=== PATIENT | male | born 1960 | race Caucasian/White ===

== ENCOUNTER 2016-07-04 15:25 | Emergency (ER) | payer OTHER ==
--- NOTE | 2016-07-04 16:20 | ED ---
Lower Extremity Injury HPI - General Chief Complaint: Extremity Injury, Lower Stated Complaint: poss post op infection-[facility] Time Seen by Provider: 07/04/16 15:57 Source: patient, RN notes reviewed Mode of arrival: wheelchair Limitations: no limitations - History of Present Illness Initial Comments: 55-year-old male presents emergency Department chief complaint of right leg infection. This started today he noticed redness and drainage from the area. Patient had surgery about a month ago down at [facility]. Patient states he has also small fever. Patient states he is concerned about infection so he thought that he should be seen. Patient states that he has not taken any antibiotics. Patient has admitted to a low-grade fever. Patient has noticed some redness to the leg. Patient's is in the room patient. Patient denies any recent shortness of breath, chest pain, back pain, abdominal pain, nausea vomiting, numbness or tingling, dysuria or hematuria, constipation or diarrhea, headaches or visual changes, or any other current symptoms. - Related Data Previous Rx's Medication Instructions Recorded Naproxen [Naprosyn] 500 mg PO BID #14 tab 03/12/14 Allergies Allergy/AdvReac Type Severity Reaction Status Date / Time No Known Allergies Allergy Verified 04/09/14 14:32 Review of Systems ROS Statement: Those systems with pertinent positive or pertinent negative responses have been documented in the HPI. ROS Other: All systems not noted in ROS Statement are negative. Past Medical History Past Medical History: Asthma Additional Past Medical History / Comment(s): bronchitis, History of Any Multi-Drug Resistant Organisms: None Reported Past Surgical History: Orthopedic Surgery, Tonsillectomy Additional Past Surgical History / Comment(s): rt. leg incision Past Anesthesia/Blood Transfusion Reactions: No Reported Reaction Past Psychological History: No Psychological Hx Reported Smoking Status: Never smoker Past Alcohol Use History: Rare Past Drug Use History: None Reported General Exam - General Exam Comments Initial Comments: General: The patient is awake and alert, in no distress, and does not appear acutely ill. Neck: The neck is supple, there is no tenderness. Cardiovascular: There is a regular rate and rhythm. No murmur, rub or gallop is appreciated. Respiratory: Lungs are clear to auscultation, respirations are non-labored, breath sounds are equal. No wheezes, stridor, rales, or rhonchi. Musculoskeletal: Sensation intact with 2+ pulses to the right lower extremity. Patient's friend rash on the right knee and right ankle. Patient has Redness induration and drainage from the right surgical incision site. Patient does notice some drainage. Neurological: CN II-XII intact, There are no obvious motor or sensory deficits. Coordination appears grossly intact. Speech is normal. Skin: Skin is warm and dry and no rashes or lesions are noted. Psychiatric: Normal mood and affect. Limitations: no limitations Course Vital Signs 07/04/16 15:34 Temperature 99.9 F H Pulse Rate 103 H Respiratory 20 Rate Blood Pressure 120/66 O2 Sat by Pulse 92 L Oximetry Medical Decision Making - Medical Decision Making 55-year-old male presents for what appears to be a surgical incision infection. This time he was offered IV lab work antibiotics medications and to be most likely transfer to that facility originally did his procedure. He states that he would just like to go to that facility the only reason he came here because Workmen's Comp. told to just go to the ER he like the facility that helped him. At this time we discussed that we would do all these and he states he does not have these done here he will go directly there. states that he would drive him. At this time we do understand the patient's wishes. At this time we will let him go by car he does appear to be safe to wait for tried him there is no immediate issue causing the patient will not be able to go by car. This and the patient will leave and he will seek treatment elsewhere. [facility] informing them about the patient coming. Disposition Clinical Impression: Cellulitis of right leg Disposition: OTHER INSTITUTION NOT DEFINED Condition: Stable Instructions: Cellulitis (ED) Additional Instructions: Go directly to [facility] where you had your procedure. Time of Disposition: 16:12 - Out of Hospital Transfer - Req. Specs Out of Hospital Transfer - Requested Specifics: Other Emergency Center ([facility])
[2016-07-04 16:41] VITALS: BP 130/66; PULSE 94; RESP 16; TEMP 100.1
== END 2016-07-04 16:41 | disposition other institution (70) ==
LOC: EC 15:25
DX: L03.115 Cellulitis of right lower limb (principal); L76.82 Other postprocedural complications of skin and subcutaneous tissue; Y83.8 Other surgical procedures as the cause of abnormal reaction of the patient, or of later complication, without mention of misadventure at the time of the procedure
CPT/HCPCS: 99283

== ENCOUNTER → 2017-04-18 | Outpatient (CLI) | payer MEDICAID ==
--- NOTE | 2017-04-18 16:38 | US ---
EXAMINATION TYPE: US venous doppler duplex LE RT DATE OF EXAM: 04/18/2017 4:05 PM COMPARISON: NONE CLINICAL HISTORY: RT leg L03.115 Cellulitis rt lower limp. SIDE PERFORMED: Right TECHNIQUE: The lower extremity deep venous system is examined utilizing real time linear array sonog pita with graded compression, doppler sonography and color-flow sonography. VESSELS IMAGED: External Iliac Vein (EIV) Common Femoral Vein Deep Femoral Vein Greater Saphenous Vein * Femoral Vein Popliteal Vein Small Saphenous Vein * Proximal Calf Veins (* superficial vessels) Right Leg: Negative for DVT Preliminary phoned to Amanda at Dr. Kelly's office. Grayscale, color doppler, spectral doppler imaging performed of the deep veins of the lower extremiti es. There is normal flow, compressibility, vascular waveforms. IMPRESSION: No sonographic evidence of deep venous thrombosis within the right lower extremity.
== END | disposition home or self-care (01) ==
LOC: RADUSWWP 15:38
PROVIDERS: ATTEND Family Medicine
DX: L03.115 Cellulitis of right lower limb (principal); R60.0 Localized edema

== ENCOUNTER → 2018-08-21 | Outpatient (CLI) | payer MEDICAID ==
[2018-08-21 10:39] LABS: Basophils % (A) 1 %; Eosinophils # (A) 0.5 k/uL (0-0.7); Eosinophils % (A) 6 %; HCT 41.9 % (39.0-53.0); HGB 13.2 gm/dL (13.0-17.5); Lymphocytes # (A) 1.6 k/uL (1.0-4.8); Lymphocytes % (A) 22 %; MCH 28.2 pg (25.0-35.0); MCHC 31.5 g/dL (31.0-37.0); MCV 89.5 fL (80.0-100.0); Mean Platelet Volume 7.4; Monocytes # (A) 0.4 k/uL (0-1.0); Monocytes % (A) 6 %; Neutrophils # (A) 4.6 k/uL (1.3-7.7); Neutrophils % (A) 64 %; Platelet Count 254 k/uL (150-450); RBC 4.69 m/uL (4.30-5.90); RDW 13.4 % (11.5-15.5); WBC 7.2 k/uL (3.8-10.6)
[2018-08-21 16:27] LABS: Albumin/Globulin Ratio 1.48 (1.60-3.17); Anion Gap 5.8 mmol/L (4.00-12.00); Calcium 9.2 mg/dL (8.7-10.3); Carbon Dioxide 26.2 mmol/L (21.6-31.8); Globulin 2.7 g/dL (1.6-3.3); Potassium 4.5 mmol/L (3.5-5.5); Total Bilirubin 0.2 mg/dL (0.3-1.2); Total Protein 6.7 g/dL (6.2-8.2)
== END | disposition home or self-care (01) ==
LOC: LABWHC1 09:32
PROVIDERS: ATTEND Nurse Practitioner Family
DX: K62.5 Hemorrhage of anus and rectum (principal); R10.9 Unspecified abdominal pain
CPT/HCPCS: 36415; 80053; 83036; 85025

== ENCOUNTER 2018-10-09 08:52 | Day surgery (SDC) | payer MEDICAID, OTHER ==
[2018-10-05 15:29] VITALS: BMI 36.5
[~2018-10-09 08:52] MED LIST: LACTATED RINGERS 1,000 ML IV SCH
[2018-10-09 09:40] VITALS: TEMP 97.7
[2018-10-09] MEDS ORDERED: PROPOFOL 10 MG/ML 20 ML VIAL IV ONE (11:32)
--- NOTE | 2018-10-09 11:42 | P.GSHP ---
History of Present Illness H&P Date: 10/09/18 Chief Complaint: Rectal bleeding Patient today for colonoscopy. He has not had one previously. Recently has had some heavy rectal bleeding. No constipation or diarrhea. No family history of colon cancer. Past Medical History Past Medical History: Asthma Additional Past Medical History / Comment(s): HX BRONCHITIS., HAYFEVER, HX OF HERNIATED DISC.,HX OF CELLULITIS IN RIGHT LEG X2., BLOOD IN STOOL., STATES LEFT LEG LACERATION ON HARTMAN WITH 16 STITCHES NOW REMOVED - STATES HE HAS CELLULITIS- DRAINING AND HAS DRESSING ON & TAKING ANTIBIOTIC.,INSTRUCTED PT TO NOTIFY DR LOPEZ OFFICE . History of Any Multi-Drug Resistant Organisms: None Reported Past Surgical History: Orthopedic Surgery, Tonsillectomy Additional Past Surgical History / Comment(s): SURGERY ON RIGHT LEG FX., DEVELOPED CELLULITIS AND HAD I & D. Past Anesthesia/Blood Transfusion Reactions: No Reported Reaction Past Psychological History: No Psychological Hx Reported Smoking Status: Never smoker Past Alcohol Use History: Rare Past Drug Use History: None Reported - Past Family History Father Additional Family Medical History / Comment(s): PARKINSONS Medications and Allergies Home Medications Medication Instructions Recorded Confirmed Type Clindamycin HCl [Cleocin] 300 mg PO Q8H 10/05/18 10/09/18 History Multivitamin/Iron/Folic Acid 1 each PO DAILY 10/05/18 10/05/18 History [Centrum Complete Multivit Tab] Naproxen Sodium [Aleve] 440 mg PO DAILY 10/05/18 10/05/18 History Allergies Allergy/AdvReac Type Severity Reaction Status Date / Time ANTIBIOTIC Allergy Nausea & Uncoded 10/09/18 09:56 Vomiting TAPE AdvReac Itching Uncoded 10/09/18 09:53 Surgical - Exam Vital Signs Temp Pulse Resp BP Pulse Ox 97.7 F 76 20 133/60 93 L 10/09/18 09:38 10/09/18 09:38 10/09/18 09:38 10/09/18 09:38 10/09/18 09:38 Physical exam: General: Well-developed, well-nourished HEENT: Normocephalic, sclerae nonicteric Abdomen: Nontender, nondistended Extremities: No edema Neuro: Alert and oriented Assessment and Plan (1) Rectal bleeding Narrative/Plan: Will proceed with colonoscopy Current Visit: Yes Status: Acute Code(s): K62.5 - HEMORRHAGE OF ANUS AND RECTUM SNOMED Code(s): 87452740
--- NOTE | 2018-10-09 12:06 | P.PCN ---
Date of Procedure: 10/09/18 Procedure(s) Performed: PREOPERATIVE DIAGNOSIS: Rectal bleeding POSTOPERATIVE DIAGNOSIS: Small hemorrhoids, suboptimal prep PROCEDURE: Colonoscopy ANESTHESIA: MAC SURGEON: Arnulfo Ceron M.D. SPECIMENS: None ENDOSCOPIC PROCEDURE: The patient was placed on the endoscopy table in the left decubitus position. The Olympus colonoscope was inserted into the anus and passed under direct visualization to the base of the cecum. The appendiceal orifice was visualized. From that point the scope was slowly withdrawn inspecting all surfaces carefully. There were no neoplastic inflammatory or polypoid lesions throughout the cecum, ascending, transverse, descending, sigmoid and rectum. There was no visible diverticulosis noted. Digital rectal examination revealed small internal and external hemorrhoids without evidence of recent or active bleeding. No fissure was palpable although there was some scar ring posteriorly that may have represented a previous fissure. The patient's prep was slightly suboptimal although most of the liquid stool could be evacuated. May have been small polyps that were not visualized properly is a patient's prep. The patient was taken to the recovery room in stable condition per anesthesia guidelines. RECOMMENDATIONS: Increase fiber. Plan follow loss be 10 years. If bleeding persists or increases follow-up in the office.
[2018-10-09 12:13] VITALS: BP 96/61; PULSE 63; RESP 16
--- NOTE | 2018-10-17 07:10 | CDI ---
Outpatient Documentation Clarification Form Date: 10/17/2018 CDS/Preschool Teacher Aide Name: Nirav Forman Phone: If any questions, call Dorita Sanchez Electric Meter Tester at [phone] Patient Name: Rai Cleaning Admit Date: 10/09/2018 Discharge Date: 10/09/2018 ATTENTION: The [facility] Coding Staff appreciate your assistance in clarifying documentation. Please respond to the clarification below the line at the bottom and electronically sign. The [facility] Coding staff will review the response and follow-up if needed. Please note: Queries are made part of the Legal Health Record. If you have any questions, please contact the Electric Meter Tester. Dear Jie Richardson Patient was present with rectal bleeding and colonoscopy was planned, internal and external hemorrhoids were found during procedure without active and recent bleed. Kindly clarify the etiology rectal bleeding and cause and effect relation between rectal bleeding and Hemorrhoids. Thank you for your kind consideration. MTDD
== END 2018-10-09 12:40 | disposition home or self-care (01) ==
LOC: ORWHC2ENDO 08:52
PROVIDERS: ATTEND Surgery
DX: K62.5 Hemorrhage of anus and rectum (principal); K64.4 Residual hemorrhoidal skin tags; K64.8 Other hemorrhoids; E66.9 Obesity, unspecified; J45.909 Unspecified asthma, uncomplicated; Z79.1 Long term (current) use of non-steroidal anti-inflammatories (NSAID); Z88.1 Allergy status to other antibiotic agents; Z91.048 Other nonmedicinal substance allergy status; Z68.36 Body mass index [BMI] 36.0-36.9, adult
CPT/HCPCS: 45378; J2704

== ENCOUNTER → 2018-10-31 | Outpatient (CLI) | payer OTHER | END | disposition home or self-care (01) | LOC: RADUSWWP 13:42 | PROVIDERS: ATTEND Family Medicine | DX: I87.2 Venous insufficiency (chronic) (peripheral) (principal) | CPT/HCPCS: 93922 ==

== ENCOUNTER 2019-11-10 13:45 | Inpatient (IN) | payer OTHER ==
[2019-11-10] MEDS ORDERED: SODIUM CHLORIDE 0.9% 1,000 ML IV STA (14:02)
[2019-11-10] MEDS ORDERED: ACETAMINOPHEN TAB 325 MG TAB PO STA (14:02)
[2019-11-10] MEDS ORDERED: cefTRIAXone IN SWFI 1,000 MG/10 ML SYRINGE IVP STA (14:10)
[2019-11-10] MEDS ORDERED: HYDROcodone/APAP 5-325MG 1 EACH TAB PO STA (14:11)
--- NOTE | 2019-11-10 14:15 | ED ---
Extremity Problem HPI - General Source: patient Mode of arrival: wheelchair Limitations: no limitations <Madan Medrano - Last Filed: 11/10/19 16:20> <Sonia Way - Last Filed: 11/18/19 13:35> - General Chief complaint: Extremity Problem,Nontraumatic Stated complaint: cellulitis in leg Time Seen by Provider: 11/10/19 14:02 - History of Present Illness Initial comments: Patient is 59-year-old male with history of recurrent cellulitis presenting to the emergency department with a chief complaint of leg pain. Patient reports his most recent episode of cellulitis is on the right lower extremity which started this morning. States initially was near the ankle area then spread proximally. States it feels warm compared to the other leg. States it is also erythematous but denies any discharge. He reports pain along the posterior aspect of the right lower extremity spreading proximally up to his upper thigh/groin. Patient also reports he spiked a fever this morning but has not taken any medication to alleviate the symptoms. Patient also reports a history of DVT with concurrent cellulitis. He is not on blood thinners currently. Denies any chest pain or shortness of breath at this time. Reports bilateral lower extremity edema baseline. (Madan Medrano) - Related Data Home Medications Medication Instructions Recorded Confirmed Multivitamin/Iron/Folic Acid 1 each PO DAILY 10/05/18 11/10/19 [Centrum Complete Multivit Tab] Allergies Allergy/AdvReac Type Severity Reaction Status Date / Time ANTIBIOTIC Allergy Unknown Nausea & Uncoded 11/10/19 16:57 Vomiting TAPE Allergy Unknown Itching Uncoded 11/10/19 16:57 Review of Systems ROS Other: All systems not noted in ROS Statement are negative. <Madan Medrano - Last Filed: 11/10/19 16:20> ROS Other: All systems not noted in ROS Statement are negative. <Sonia Way - Last Filed: 11/18/19 13:35> ROS Statement: Those systems with pertinent positive or pertinent negative responses have been documented in the HPI. Past Medical History Past Medical History: Asthma Additional Past Medical History / Comment(s): HX BRONCHITIS., HAYFEVER, HX OF HERNIATED DISC.,HX OF CELLULITIS IN RIGHT LEG X2., BLOOD IN STOOL., STATES LEFT LEG LACERATION ON HARTMAN WITH 16 STITCHES NOW REMOVED - STATES HE HAS CELLULITIS- DRAINING AND HAS DRESSING ON & TAKING ANTIBIOTIC.,INSTRUCTED PT TO NOTIFY DR LOPEZ OFFICE . History of Any Multi-Drug Resistant Organisms: None Reported Past Surgical History: Orthopedic Surgery, Tonsillectomy Additional Past Surgical History / Comment(s): SURGERY ON RIGHT LEG FX., DEVELOPED CELLULITIS AND HAD I & D. Past Anesthesia/Blood Transfusion Reactions: No Reported Reaction Past Psychological History: No Psychological Hx Reported Smoking Status: Never smoker Past Alcohol Use History: Rare Past Drug Use History: None Reported - Past Family History Father Additional Family Medical History / Comment(s): PARKINSONS <Madan Medrano - Last Filed: 11/10/19 16:20> General Exam Limitations: no limitations General appearance: alert, in no apparent distress, obese Head exam: Present: atraumatic, normocephalic, normal inspection Eye exam: Present: normal appearance, PERRL, EOMI Pupils: Present: normal accommodation ENT exam: Present: normal exam, normal oropharynx, mucous membranes moist Neck exam: Present: normal inspection, full ROM. Absent: tenderness Respiratory exam: Present: normal lung sounds bilaterally. Absent: respiratory distress, wheezes Cardiovascular Exam: Present: regular rate, normal rhythm, normal heart sounds Extremities exam: Present: full ROM, tenderness (Tenderness in the region of erythema), normal capillary refill, pedal edema (+2 pitting edema), other (+2 dorsalis pedis and posterior tibialis bilaterally.). Absent: normal inspection (Bilateral lower extremity edema. Cellulitic changes occurring on the right lower leg starting near the ankle spreading proximally around the whole circumference of the leg to knee knee. No signs of active discharge. No apparent Salit) Back exam: Present: normal inspection, full ROM Neurological exam: Present: alert, oriented X3 Psychiatric exam: Present: normal affect, normal mood Skin exam: Present: warm, dry, intact, normal color <Madan Medrano - Last Filed: 11/10/19 16:20> Course Vital Signs 11/10/19 11/10/19 11/10/19 13:52 14:30 15:00 Temperature 101.7 F H Pulse Rate 99 97 98 Respiratory 16 17 17 Rate Blood Pressure 140/84 143/99 145/85 O2 Sat by Pulse 95 97 96 Oximetry 11/10/19 11/10/19 11/10/19 15:30 16:30 17:11 Temperature 98.9 F Pulse Rate 97 80 Respiratory 17 17 Rate Blood Pressure 109/67 104/54 O2 Sat by Pulse 97 97 Oximetry 11/10/19 17:30 Temperature Pulse Rate 87 Respiratory 17 Rate Blood Pressure 103/60 O2 Sat by Pulse 97 Oximetry Medical Decision Making - Lab Data Result diagrams: 11/10/19 14:35 11/10/19 14:35 <Madan Medrano - Last Filed: 11/10/19 16:20> - Lab Data Result diagrams: 11/18/19 09:47 11/16/19 10:[address] <[address] - Last Filed: 11/18/19 13:35> - Medical Decision Making Ration a 59-year-old male with history of recurrent cellulitis presenting to emergency Department with chief complaint of leg pain. On exam this appears to be cellulitis in the right lower extremity with overlying skin changes. Clearly Demarcated erythematous borders. Considering the patient's history of DVT and his pain that is extending along the posterior aspect of her right lower extremity. Doppler ultrasound was performed to rule out DVT. No signs of DVT. Patient started on Rocephin given antipyretics and fluids. Patient afebrile in the ED. CBC reveals leukocytosis of 17 K. lactate is 1. Patient also given analgesia in the ED. Patient will be admitted for further medical management. Case discussed with Admitting physicina is Dr. Hussein (Madan Medrano) I was available for consultation in the emergency department. The history and physical exam were done by the midlevel provider. I was consulted for this patients care. I reviewed the case with the midlevel provider and based on their presentation of the patient, I agree with the assessment, medical decision making and plan of care as documented. Chart was dictated using [employer] dictation software. Attempts were made to correct any dictation errors however some typographical errors may persist. Patient was seen during a national state of emergency due to the Covid-19 pandemic. ([address]) - Lab Data Lab Results 11/10/19 11/10/19 11/10/19 Range/Units 14:35 14:35 14:35 WBC 17.8 H (3.8-10.6) k/uL RBC 5.23 (4.30-5.90) m/uL Hgb 15.5 (13.0-17.5) gm/dL Hct 47.0 (39.0-53.0) % MCV 89.9 (80.0-100.0) fL MCH 29.6 (25.0-35.0) pg MCHC 32.9 (31.0-37.0) g/dL RDW 13.0 (11.5-15.5) % Plt Count 213 (150-450) k/uL Neutrophils % 93 % Lymphocytes % 2 % Monocytes % 3 % Eosinophils % 2 % Basophils % 0 % Neutrophils # 16.5 H (1.3-7.7) k/uL Lymphocytes # 0.4 L (1.0-4.8) k/uL Monocytes # 0.5 (0-1.0) k/uL Eosinophils # 0.3 (0-0.7) k/uL Basophils # 0.0 (0-0.2) k/uL Sodium 140 (137-145) mmol/L Potassium 4.8 (3.5-5.1) mmol/L Chloride 106 (98-107) mmol/L Carbon Dioxide 23 (22-30) mmol/L Anion Gap 11 mmol/L BUN 18 (9-20) mg/dL Creatinine 1.15 (0.66-1.25) mg/dL Est GFR (CKD-EPI)AfAm 80 (>60 ml/min/1.73 sqM) Est GFR (CKD-EPI)NonAf 69 (>60 ml/min/1.73 sqM) Glucose 101 H (74-99) mg/dL Plasma Lactic Acid Jim (0.7-2.0) mmol/L Calcium 9.6 (8.4-10.2) mg/dL Total Bilirubin 0.7 (0.2-1.3) mg/dL AST 38 (17-59) U/L ALT 13 (4-49) U/L Alkaline Phosphatase 126 (38-126) U/L Total Protein 8.5 H (6.3-8.2) g/dL Albumin 4.6 (3.5-5.0) g/dL Coronavirus (PCR) Not Detected (Not Detected) 11/10/19 Range/Units 15:29 WBC (3.8-10.6) k/uL RBC (4.30-5.90) m/uL Hgb (13.0-17.5) gm/dL Hct (39.0-53.0) % MCV (80.0-100.0) fL MCH (25.0-35.0) pg MCHC (31.0-37.0) g/dL RDW (11.5-15.5) % Plt Count (150-450) k/uL Neutrophils % % Lymphocytes % % Monocytes % % Eosinophils % % Basophils % % Neutrophils # (1.3-7.7) k/uL Lymphocytes # (1.0-4.8) k/uL Monocytes # (0-1.0) k/uL Eosinophils # (0-0.7) k/uL Basophils # (0-0.2) k/uL Sodium (137-145) mmol/L Potassium (3.5-5.1) mmol/L Chloride (98-107) mmol/L Carbon Dioxide (22-30) mmol/L Anion Gap mmol/L BUN (9-20) mg/dL Creatinine (0.66-1.25) mg/dL Est GFR (CKD-EPI)AfAm (>60 ml/min/1.73 sqM) Est GFR (CKD-EPI)NonAf (>60 ml/min/1.73 sqM) Glucose (74-99) mg/dL Plasma Lactic Acid Jim 1.0 (0.7-2.0) mmol/L Calcium (8.4-10.2) mg/dL Total Bilirubin (0.2-1.3) mg/dL AST (17-59) U/L ALT (4-49) U/L Alkaline Phosphatase (38-126) U/L Total Protein (6.3-8.2) g/dL Albumin (3.5-5.0) g/dL Coronavirus (PCR) (Not Detected) Disposition Is patient prescribed a controlled substance at d/c from ED?: No Time of Disposition: 16:23 <Madan Medrano - Last Filed: 11/10/19 16:20> <Sonia Way - Last Filed: 11/18/19 13:35> Clinical Impression: Cellulitis of leg, right Disposition: ADMITTED IP TO THIS HOSP Condition: Good
[2019-11-10 14:46] LABS: Basophils % (A) 0 %; Eosinophils # (A) 0.3 k/uL (0-0.7); Eosinophils % (A) 2 %; HGB 15.5 gm/dL (13.0-17.5); Lymphocytes # (A) 0.4 k/uL (1.0-4.8); Lymphocytes % (A) 2 %; MCH 29.6 pg (25.0-35.0); MCHC 32.9 g/dL (31.0-37.0); MCV 89.9 fL (80.0-100.0); Mean Platelet Volume 7.1; Monocytes # (A) 0.5 k/uL (0-1.0); Monocytes % (A) 3 %; Neutrophils # (A) 16.5 k/uL (1.3-7.7); Neutrophils % (A) 93 %; Platelet Count 213 k/uL (150-450); RBC 5.23 m/uL (4.30-5.90); WBC 17.8 k/uL (3.8-10.6)
[2019-11-10 14:57] LABS: Albumin 4.6 g/dL (3.5-5.0); Calcium 9.6 mg/dL (8.4-10.2); Total Bilirubin 0.7 mg/dL (0.2-1.3); Total Protein 8.5 g/dL (6.3-8.2)
[2019-11-10 15:01] LABS: Potassium 4.8 mmol/L (3.5-5.1)
--- NOTE | 2019-11-10 15:37 | US ---
EXAMINATION TYPE: US venous doppler duplex LE RT DATE OF EXAM: 11/10/2019 3:19 PM COMPARISON: US 04/18/2017 CLINICAL HISTORY: Cellulitis, r/o DVT, hx of DVT per patient, posterior leg pain. SIDE PERFORMED: Right TECHNIQUE: The lower extremity deep venous system is examined utilizing real time linear array sonog pita with graded compression, doppler sonography and color-flow sonography. VESSELS IMAGED: External Iliac Vein (EIV) Common Femoral Vein Deep Femoral Vein Greater Saphenous Vein * Femoral Vein Popliteal Vein Small Saphenous Vein * Proximal Calf Veins (* superficial vessels) Right Leg: Negative for DVT IMPRESSION: No evidence of right leg deep vein thrombosis.
[2019-11-10] MEDS ORDERED: VANCOMYCIN IV PER PHARMACY 1 EACH MISC MISCELLANE PRN (16:10)
[2019-11-10] MEDS ORDERED: MORPHINE SULFATE 4 MG/ML SYRINGE IV PRN (16:18)
[2019-11-10] MEDS ORDERED: LORazepam 2 MG/ML INJ IV PRN (16:18)
[2019-11-10] MEDS ORDERED: HYDROcodone/APAP 5-325MG 1 EACH TAB PO PRN (16:18)
[2019-11-10] MEDS ORDERED: NALOXONE 0.4 MG/ML 1 ML VIAL IV PRN (16:18)
[2019-11-10] MEDS ORDERED: VANCOMYCIN 2,250 MG in SODIUM CHLORIDE 0.9% 500 ML 500 ML IVPB ONE (16:45)
[2019-11-10] MEDS: SODIUM CHLORIDE 0.9% 1,000 ML IV SCH (17:05)
[2019-11-10] MEDS: ONDANSETRON 4 MG/2 ML VIAL IVP PRN (20:20)
--- NOTE | 2019-11-10 22:33 | P.HPIM ---
History of Present Illness H&P Date: 11/10/19 Chief Complaint: left leg swelling Patient is a 59-year-old male with a known history of cellulitis of the right leg x2, history of multiple leg fractures and asthma came to ER with complaints of right leg pain. Patient states that he has been having increased redness and swelling of the right lower extremity since morning. Initially started near the ankle area and then spread proximally. Patient was also febrile with T-max was 1011.7 on admission. Patient did have prior cellulitis in the past. Denied any complaints of chest pain or shortness of breath. Patient states that he did have history of DVT along with cellulitis. No nausea vomiting or abdominal pain or diarrhea. No recent illnesses or sick contacts. No complaints of pleuritic chest pain. Patient does have chronic bilateral lower extremity edema which seems to increase with overnight leg elevation. Denied any complaints of congestive heart failure. Denied any history of heart disease. Lower extremity duplex scan is negative for DVT. Laboratory data showed WBC 17.8, hemoglobin 15.5, lymphocytes 0.4 and neutrophils 16.5 absolute Liver enzymes are not elevated. Electrolytes within normal limits. Review of Systems Constitutional: Patient does have fever and no chills . No generalized weakness or weight loss. Abdomen: Patient denied nausea vomiting and diarrhea and abdominal pain. Cardiovascular: Patient does have chest pain . No short of breath no palpitations. Respiratory: patient denied any cough is from production. No shortness of breath Neurologic: Patient denied any numbness or tingling headache. Musculoskeletal: Patient denies any complaints of joint swelling or deformity. Skin: Right leg swelling pain and redness. Psychiatric: Negative Endocrine: No heat or cold intolerance. No recent weight gain. Genitourinary: No dysuria or hematuria. All other 14 point ROS negative except the above Past Medical History Past Medical History: Asthma Additional Past Medical History / Comment(s): HX BRONCHITIS., HAYFEVER, HX OF HERNIATED DISC.,HX OF CELLULITIS IN RIGHT LEG X2., BLOOD IN STOOL., STATES LEFT LEG LACERATION ON HARTMAN WITH 16 STITCHES NOW REMOVED - STATES HE HAS CELLULITIS- DRAINING AND HAS DRESSING ON & TAKING ANTIBIOTIC.,INSTRUCTED PT TO NOTIFY DR LOPEZ OFFICE, FX TIB/FIB RIGHT LEG W/LAURYN 2015 History of Any Multi-Drug Resistant Organisms: None Reported Past Surgical History: Orthopedic Surgery, Tonsillectomy Additional Past Surgical History / Comment(s): SURGERY ON RIGHT LEG FX., DEVELOPED CELLULITIS AND HAD I & D. Past Anesthesia/Blood Transfusion Reactions: No Reported Reaction Past Psychological History: No Psychological Hx Reported Smoking Status: Never smoker Past Alcohol Use History: Rare Past Drug Use History: None Reported Additional Drug Use History / Comment(s): DID STRE[address] DRUG A TEEN. - Past Family History Father Additional Family Medical History / Comment(s): P[facility]IN[facility] Medications and Allergies Home Medications Medication Instructions Recorded Confirmed Type Multivitamin/Iron/Folic Acid 1 each PO DAILY 10/05/18 11/10/19 History [Centrum Complete Multivit Tab] Allergies Allergy/AdvReac Type Severity Reaction Status Date / Time ANTIBIOTIC Allergy Unknown Nausea & Uncoded 11/10/19 16:57 Vomiting TAPE Allergy Unknown Itching Uncoded 11/10/19 16:57 Physical Exam Vitals: Vital Signs Temp Pulse Resp BP Pulse Ox 11/10/19 17:30 87 17 103/60 97 11/10/19 17:11 98.9 F 11/10/19 16:30 80 17 104/54 97 11/10/19 15:30 97 17 109/67 97 11/10/19 15:00 98 17 145/85 96 11/10/19 14:30 97 17 143/99 97 11/10/19 13:52 101.7 F H 99 16 140/84 95 Intake and Output 11/10/19 11/10/19 11/10/19 06:59 14:59 22:59 Other: Weight 135.171 kg 135.171 kg PHYSICAL EXAMINATION: Patient is lying in the bed comfortably, no acute distress, awake alert and oriented.. HEENT: Normocephalic. Neck is supple. Pupils reactive. Nostrils clear. Oral cavity is moist. Ears reveal no drainage. Neck reveals no JVD, carotid bruits, or thyromegaly. CHEST EXAMINATION: Trachea is central. Symmetrical expansion. Lung kaplan clear to auscultation and percussion. CARDIAC: Normal S1, S2 with no gallops. No murmurs ABDOMEN: Soft. Bowel sounds normal. No organomegaly. No abdominal bruits. Extremities: b/ l 2+ edema. R>L Patient does have right leg redness swelling and warm and tender to touch. No fluid collection or discharge noted. No clubbing or cyanosis Neurologically awake, alert, oriented x3 with well-coordinated movements. No focal deficits noted Skin: No rash or skin lesions. Psychiatric: Coperative. Nonsuicidal Musculoskeletal: No joint swelling or deformity. Normal range of motion. Results CBC & Chem 7: 11/10/19 14:35 11/10/19 14:35 Labs: Abnormal Lab Results - Last 24 Hours (Table) 11/10/19 11/10/19 Range/Units 14:35 14:35 WBC 17.8 H (3.8-10.6) k/uL Neutrophils # 16.5 H (1.3-7.7) k/uL Lymphocytes # 0.4 L (1.0-4.8) k/uL Glucose 101 H (74-99) mg/dL Total Protein 8.5 H (6.3-8.2) g/dL Thrombosis Risk Factor Assmnt - DVT/VTE Prophylaxis DVT/VTE Prophylaxis: Pharmacologic Prophylaxis ordered - Choose All That Apply Any of the Below Risk Factors Present?: Yes Each Factor Represents 1 point: Swollen legs (current) Other Risk Factors: Yes Each Risk Factor Represents 2 Points: Age 61-74 years Each Risk Factor Represents 3 Points: History of DVT/PE Thrombosis Risk Factor Assessment Total Risk Factor Score: 6 Thrombosis Risk Factor Assessment Level: High Risk Assessment and Plan Assessment: Right lower extremity cellulitis Sepsis secondary to cellulitis Previous history of right lower extremity cellulitis and laceration wound Asthma stable Morbid obesity with BMI 36.3 Plan: Patient was given a dose of ceftriaxone and vancomycin in the ER. We will continue with vancomycin at this time. Follow-up blood cultures and monitor closely. Continue with pain management and further recommendations based on the clinical course. Time with Patient: Greater than 30
[2019-11-11] MEDS: ACETAMINOPHEN TAB 325 MG TAB PO PRN ×3 (00:21→19:54)
[2019-11-11] MEDS: HEPARIN SODIUM,PORCINE 5,000 UNIT/ML 1 ML VIAL SQ SCH ×4 (00:21→22:52)
[2019-11-11] MEDS: VANCOMYCIN 2,000 MG in SODIUM CHLORIDE 0.9% 500 ML 500 ML IVPB SCH ×2 (06:08→17:16)
[2019-11-11] MEDS: SODIUM CHLORIDE 0.9% 1,000 ML IV SCH ×2 (06:11→22:52)
--- NOTE | 2019-11-12 00:04 | P.PN ---
Subjective Progress Note Date: 11/11/19 Principal diagnosis: Right lower extremity cellulitis Patient is a 59-year-old male with a known history of cellulitis of the right leg x2, history of multiple leg fractures and asthma came to ER with complaints of right leg pain. Patient states that he has been having increased redness and swelling of the right lower extremity since morning. Initially started near the ankle area and then spread proximally. Patient was also febrile with T-max was 1011.7 on admission. Patient did have prior cellulitis in the past. Denied any complaints of chest pain or shortness of breath. Patient states that he did have history of DVT along with cellulitis. No nausea vomiting or abdominal pain or diarrhea. No recent illnesses or sick contacts. No complaints of pleuritic chest pain. Patient does have chronic bilateral lower extremity edema which seems to increase with overnight leg elevation. Denied any complaints of congestive heart failure. Denied any history of heart disease. Lower extremity duplex scan is negative for DVT. Laboratory data showed WBC 17.8, hemoglobin 15.5, lymphocytes 0.4 and neutrophils 16.5 absolute Liver enzymes are not elevated. Electrolytes within normal limits. 11/11/2019 Patient is currently lying in the bed comfortably. Right lower extremity redness did improve compared to yesterday. Still having leg swelling. No drainage was noted. Patient is also complaining of pain in the back of the calf region. Duplex scan was negative otherwise. Patient does have slight compression this morning with T-max of 100.5 Currently saturating well on room air. Laboratory data reviewed. Patient is being continued on antibiotics in the form of vancomycin. Blood cultures have been negative so far. Current medications reviewed. Objective - Vital Signs Vital signs: Vital Signs Temp 99.1 F 11/11/19 15:00 Pulse 82 11/11/19 15:00 Resp 18 11/11/19 15:00 BP 106/68 11/11/19 15:00 Pulse Ox 93 L 11/11/19 15:00 Intake & Output 11/11/19 11/11/19 11/12/19 06:59 18:59 06:59 Output Total 275 600 Balance -275 -600 Output: Urine 275 600 Other: Voiding Method Urinal Urinal Urinal # Voids 3 - Exam PHYSICAL EXAMINATION: Patient is lying in the bed comfortably, no acute distress, awake alert and oriented.. HEENT: Normocephalic. Neck is supple. Pupils reactive. Nostrils clear. Oral cavity is moist. Ears reveal no drainage. Neck reveals no JVD, carotid bruits, or thyromegaly. CHEST EXAMINATION: Trachea is central. Symmetrical expansion. Lung kaplan clear to auscultation and percussion. CARDIAC: Normal S1, S2 with no gallops. No murmurs ABDOMEN: Soft. Bowel sounds normal. No organomegaly. No abdominal bruits. Extremities: b/ l 2+ edema. R>L Patient does have right leg redness swelling and warm and tender to touch. No fluid collection or discharge noted. No clubbing or cyanosis Neurologically awake, alert, oriented x3 with well-coordinated movements. No focal deficits noted Skin: No rash or skin lesions. Psychiatric: Coperative. Nonsuicidal Musculoskeletal: No joint swelling or deformity. Normal range of motion. - Labs CBC & Chem 7: 11/10/19 14:35 11/10/19 14:35 Labs: Microbiology - Last 24 Hours (Table) 11/10/19 14:35 Blood Culture - Preliminary Blood No Growth after 24 hours Assessment and Plan Assessment: Right lower extremity cellulitis Sepsis secondary to cellulitis Previous history of right lower extremity cellulitis and laceration wound Asthma stable Morbid obesity with BMI 36.3 Plan: Patient was given a dose of ceftriaxone and vancomycin in the ER. We will continue with vancomycin at this time. Follow-up blood cultures and monitor closely. Continue with pain management and further recommendations based on the clinical course. Time with Patient: Greater than 30
[2019-11-12] MEDS: VANCOMYCIN 2,000 MG in SODIUM CHLORIDE 0.9% 500 ML 500 ML IVPB SCH ×2 (05:21→18:02)
[2019-11-12] MEDS: HEPARIN SODIUM,PORCINE 5,000 UNIT/ML 1 ML VIAL SQ SCH ×2 (06:50→16:29)
[2019-11-12] MEDS: ACETAMINOPHEN TAB 325 MG TAB PO PRN (07:52)
[2019-11-12 08:15] LABS: Basophils % (A) 0 %; Eosinophils # (A) 0.2 k/uL (0-0.7); Eosinophils % (A) 1 %; HCT 37.4 % (39.0-53.0); Lymphocytes # (A) 1.2 k/uL (1.0-4.8); Lymphocytes % (A) 10 %; MCHC 32.8 g/dL (31.0-37.0); MCV 91.3 fL (80.0-100.0); Mean Platelet Volume 7.9; Monocytes # (A) 0.5 k/uL (0-1.0); Monocytes % (A) 4 %; Neutrophils # (A) 10.1 k/uL (1.3-7.7); Neutrophils % (A) 84 %; Platelet Count 167 k/uL (150-450); RDW 13.3 % (11.5-15.5); WBC 12.1 k/uL (3.8-10.6)
[2019-11-12 08:19] LABS: HGB 12.3 gm/dL (13.0-17.5)
[2019-11-12 09:22] LABS: Calcium 8.1 mg/dL (8.4-10.2); Potassium 4.1 mmol/L (3.5-5.1)
[2019-11-12] MEDS: SODIUM CHLORIDE 0.9% 1,000 ML IV SCH (10:51)
[2019-11-13] MEDS: ONDANSETRON 4 MG/2 ML VIAL IVP PRN (00:14)
[2019-11-13] MEDS: SODIUM CHLORIDE 0.9% 1,000 ML IV SCH (00:16)
[2019-11-13] MEDS: HEPARIN SODIUM,PORCINE 5,000 UNIT/ML 1 ML VIAL SQ SCH ×4 (00:43→23:03)
[2019-11-13] MEDS: ACETAMINOPHEN TAB 325 MG TAB PO PRN ×2 (02:28→17:28)
[2019-11-13] MEDS ORDERED: VANCOMYCIN TROUGH DUE 1 EACH MISC MISCELLANE ONE (05:00)
--- NOTE | 2019-11-14 01:29 | P.PN ---
Subjective Progress Note Date: 11/12/19 Principal diagnosis: Right lower extremity cellulitis Patient is a 59-year-old male with a known history of cellulitis of the right leg x2, history of multiple leg fractures and asthma came to ER with complaints of right leg pain. Patient states that he has been having increased redness and swelling of the right lower extremity since morning. Initially started near the ankle area and then spread proximally. Patient was also febrile with T-max was 1011.7 on admission. Patient did have prior cellulitis in the past. Denied any complaints of chest pain or shortness of breath. Patient states that he did have history of DVT along with cellulitis. No nausea vomiting or abdominal pain or diarrhea. No recent illnesses or sick contacts. No complaints of pleuritic chest pain. Patient does have chronic bilateral lower extremity edema which seems to increase with overnight leg elevation. Denied any complaints of congestive heart failure. Denied any history of heart disease. Lower extremity duplex scan is negative for DVT. Laboratory data showed WBC 17.8, hemoglobin 15.5, lymphocytes 0.4 and neutrophils 16.5 absolute Liver enzymes are not elevated. Electrolytes within normal limits. 11/11/2019 Patient is currently lying in the bed comfortably. Right lower extremity redness did improve compared to yesterday. Still having leg swelling. No drainage was noted. Patient is also complaining of pain in the back of the calf region. Duplex scan was negative otherwise. Patient does have slight compression this morning with T-max of 100.5 Currently saturating well on room air. Laboratory data reviewed. Patient is being continued on antibiotics in the form of vancomycin. Blood cultures have been negative so far. 11/12/2019 Patient is currently lying in the bed comfortably. Right lower extremity swelling is better and the redness is better as well. Patient is currently complaining of pain and unable to bear any weight at this time. No fever no chills. Leukocytosis improved. Antibiotics will be changed to cefazolin. Blood cultures have been negative so far. Current medications reviewed. Objective - Vital Signs Vital signs: Vital Signs Temp 98.4 F 11/12/19 15:00 Pulse 77 11/12/19 15:00 Resp 18 11/12/19 16:00 BP 153/82 11/12/19 15:00 Pulse Ox 93 L 11/12/19 15:00 Intake & Output 11/12/19 11/12/19 11/13/19 06:59 18:59 06:59 Intake Total 500 Output Total 1650 450 Balance -1650 50 Intake: Intake, IV Titration 500 Amount Vancomycin 2,000 mg In 500 Sodium Chloride 0.9% 500 ml 500 ml @ 167 mls/hr IVPB Q12H [facility] Rx#: [id number] Output: Urine 1650 450 Other: Voiding Method Urinal Urinal Urinal # Voids 1 - Exam PHYSICAL EXAMINATION: Patient is lying in the bed comfortably, no acute distress, awake alert and oriented.. HEENT: Normocephalic. Neck is supple. Pupils reactive. Nostrils clear. Oral cavity is moist. Ears reveal no drainage. Neck reveals no JVD, carotid bruits, or thyromegaly. CHEST EXAMINATION: Trachea is central. Symmetrical expansion. Lung kaplan clear to auscultation and percussion. CARDIAC: Normal S1, S2 with no gallops. No murmurs ABDOMEN: Soft. Bowel sounds normal. No organomegaly. No abdominal bruits. Extremities: b/ l 2+ edema. R>L Patient does have right leg redness swelling and warm and tender to touch. No fluid collection or discharge noted. No clubbing or cyanosis Neurologically awake, alert, oriented x3 with well-coordinated movements. No focal deficits noted Skin: No rash or skin lesions. Psychiatric: Coperative. Nonsuicidal Musculoskeletal: No joint swelling or deformity. Normal range of motion. - Labs CBC & Chem 7: 11/12/19 07:05 11/12/19 07:05 Labs: Abnormal Lab Results - Last 24 Hours (Table) 11/12/19 11/12/19 Range/Units 07:05 07:05 WBC 12.1 H (3.8-10.6) k/uL RBC 4.10 L (4.30-5.90) m/uL Hgb 12.3 L D (13.0-17.5) gm/dL Hct 37.4 L (39.0-53.0) % Neutrophils # 10.1 H (1.3-7.7) k/uL Chloride 108 H (98-107) mmol/L Glucose 121 H (74-99) mg/dL Calcium 8.1 L (8.4-10.2) mg/dL Microbiology - Last 24 Hours (Table) 11/10/19 14:35 Blood Culture - Preliminary Blood No Growth after 48 hours Assessment and Plan Assessment: Right lower extremity cellulitis Sepsis secondary to cellulitis Previous history of right lower extremity cellulitis and laceration wound Asthma stable Morbid obesity with BMI 36.3 Plan: Patient was given a dose of ceftriaxone and vancomycin in the ER. We will continue with vancomycin at this time---Cefazolin Follow-up blood cultures and monitor closely. Continue with pain management and further recommendations based on the clinical course.
--- NOTE | 2019-11-14 01:32 | P.PN ---
Subjective Progress Note Date: 11/13/19 Principal diagnosis: Right lower extremity cellulitis Patient is a 59-year-old male with a known history of cellulitis of the right leg x2, history of multiple leg fractures and asthma came to ER with complaints of right leg pain. Patient states that he has been having increased redness and swelling of the right lower extremity since morning. Initially started near the ankle area and then spread proximally. Patient was also febrile with T-max was 1011.7 on admission. Patient did have prior cellulitis in the past. Denied any complaints of chest pain or shortness of breath. Patient states that he did have history of DVT along with cellulitis. No nausea vomiting or abdominal pain or diarrhea. No recent illnesses or sick contacts. No complaints of pleuritic chest pain. Patient does have chronic bilateral lower extremity edema which seems to increase with overnight leg elevation. Denied any complaints of congestive heart failure. Denied any history of heart disease. Lower extremity duplex scan is negative for DVT. Laboratory data showed WBC 17.8, hemoglobin 15.5, lymphocytes 0.4 and neutrophils 16.5 absolute Liver enzymes are not elevated. Electrolytes within normal limits. 11/11/2019 Patient is currently lying in the bed comfortably. Right lower extremity redness did improve compared to yesterday. Still having leg swelling. No drainage was noted. Patient is also complaining of pain in the back of the calf region. Duplex scan was negative otherwise. Patient does have slight compression this morning with T-max of 100.5 Currently saturating well on room air. Laboratory data reviewed. Patient is being continued on antibiotics in the form of vancomycin. Blood cultures have been negative so far. 11/12/2019 Patient is currently lying in the bed comfortably. Right lower extremity swelling is better and the redness is better as well. Patient is currently complaining of pain and unable to bear any weight at this time. No fever no chills. Leukocytosis improved. Antibiotics will be changed to cefazolin. Blood cultures have been negative so far. 11/13/2019 Patient denied any complaints of fever or chills. No complaints of chest pain or shortness of breath. Right lower extremity swelling is improved. Redness improved as well. Able to walk to the bathroom. Currently being continued on antibiotics in the home cefazolin. Anticipate discharge in the next 24 hours with more clinical improvement. Blood cultures have been negative so far Current medications reviewed. Objective - Vital Signs Vital signs: Vital Signs Temp 98.8 F 11/13/19 18:56 Pulse 75 11/13/19 23:48 Resp 16 11/13/19 23:48 BP 131/65 11/13/19 18:56 Pulse Ox 93 L 11/13/19 18:56 Intake & Output 11/13/19 11/13/19 11/14/19 06:59 18:59 06:59 Intake Total 230 400 600 Output Total 925 Balance -695 400 600 Intake: Intake, IV Titration 50 50 600 Amount Sodium Chloride 0.9% 1, 600 000 ml @ 75 mls/hr IV . [id number] [facility] Rx#:[id number] ceFAZolin 1,000 mg In 50 50 Sodium Chloride 0.9% 50 ml @ 100 mls/hr IVPB Q8HR [facility] Rx#:[id number] Oral 180 350 Output: Urine 925 Other: Voiding Method Urinal Urinal Urinal # Voids 1 3 2 - Exam PHYSICAL EXAMINATION: Patient is lying in the bed comfortably, no acute distress, awake alert and oriented.. HEENT: Normocephalic. Neck is supple. Pupils reactive. Nostrils clear. Oral cavity is moist. Ears reveal no drainage. Neck reveals no JVD, carotid bruits, or thyromegaly. CHEST EXAMINATION: Trachea is central. Symmetrical expansion. Lung kaplan clear to auscultation and percussion. CARDIAC: Normal S1, S2 with no gallops. No murmurs ABDOMEN: Soft. Bowel sounds normal. No organomegaly. No abdominal bruits. Extremities: b/ l 2+ edema. R>L Patient does have right leg redness swelling and warm and tender to touch. No fluid collection or discharge noted. No clubbing or cyanosis Neurologically awake, alert, oriented x3 with well-coordinated movements. No focal deficits noted Skin: No rash or skin lesions. Psychiatric: Coperative. Nonsuicidal Musculoskeletal: No joint swelling or deformity. Normal range of motion. - Labs CBC & Chem 7: 11/12/19 07:05 11/12/19 07:05 Labs: Microbiology - Last 24 Hours (Table) 11/10/19 14:35 Blood Culture - Preliminary Blood No Growth after 72 hours Assessment and Plan Assessment: Right lower extremity cellulitis Sepsis secondary to cellulitis Previous history of right lower extremity cellulitis and laceration wound Asthma stable Morbid obesity with BMI 36.3 Plan: Patient was given a dose of ceftriaxone and vancomycin in the ER. We will continue with vancomycin at this time---Cefazolin Follow-up blood cultures and monitor closely. Continue with pain management and further recommendations based on the clinical course.
[2019-11-14] MEDS: HEPARIN SODIUM,PORCINE 5,000 UNIT/ML 1 ML VIAL SQ SCH ×2 (08:23→16:06)
[2019-11-14] MEDS: ACETAMINOPHEN TAB 325 MG TAB PO PRN (08:23)
[2019-11-14] MEDS: NYSTATIN 100,000UNIT/GM CREAM 30 GM TUBE TOPICAL SCH (21:41)
[2019-11-15] MEDS: HEPARIN SODIUM,PORCINE 5,000 UNIT/ML 1 ML VIAL SQ SCH ×3 (00:33→16:23)
--- NOTE | 2019-11-15 08:16 | P.CONS ---
History of Present Illness - Reason for Consult Consult date: 11/14/19 Right lower extremity cellulitis Requesting physician: Consuelo Hussein - Chief Complaint Right leg pain swelling and redness 1 day - History of Present Illness Patient is a 59-year-old male with a past medical history significant for recurrent lower extremity cellulitis predominantly to his right leg, presents to the ER at [facility] on 11/10/2019 with a chief complaints of right leg pain swelling and redness of one days duration, patient describing the pain to the right leg to be sharp at times throbbing intensity of 5-6 out of 10 and no radiation, patient also complaining of fever with chills, with these symptoms the patient has been evaluated by the ER physician on arrival to the patient did have a fever of 101F patient did have elevated white count he did have a lower extremity Doppler that was negative for DVT patient has been started on cefazolin 1 g every 8 hours and infectious disease was consulted today for further management of antibiotic in the of slow clinical response to current antibiotic therapy, the patient denies having any chest pain or shortness of breath or cough no nausea no vomiting no abdominal pain or any diarrhea Review of Systems Positive point has been mentioned in the HPI rest of the systems are negative Past Medical History Past Medical History: Asthma Additional Past Medical History / Comment(s): HX BRONCHITIS., HAYFEVER, HX OF HERNIATED DISC.,HX OF CELLULITIS IN RIGHT LEG X2., BLOOD IN STOOL., STATES LEFT LEG LACERATION ON HARTMAN WITH 16 STITCHES NOW REMOVED - STATES HE HAS CELLULITIS- DRAINING AND HAS DRESSING ON & TAKING ANTIBIOTIC.,INSTRUCTED PT TO NOTIFY DR LOPEZ OFFICE, FX TIB/FIB RIGHT LEG W/LAURYN 2015 History of Any Multi-Drug Resistant Organisms: None Reported Past Surgical History: Orthopedic Surgery, Tonsillectomy Additional Past Surgical History / Comment(s): SURGERY ON RIGHT LEG FX., DEVELOPED CELLULITIS AND HAD I & D. Past Anesthesia/Blood Transfusion Reactions: No Reported Reaction Past Psychological History: No Psychological Hx Reported Smoking Status: Never smoker Past Alcohol Use History: Rare Past Drug Use History: None Reported Additional Drug Use History / Comment(s): DID STREET DRUG A TEEN. - Past Family History Father Additional Family Medical History / Comment(s): PARKINSONS Medications and Allergies Home Medications Medication Instructions Recorded Confirmed Type Multivitamin/Iron/Folic Acid 1 each PO DAILY 10/05/18 11/10/19 History [Centrum Complete Multivit Tab] Allergies Allergy/AdvReac Type Severity Reaction Status Date / Time ANTIBIOTIC Allergy Unknown Nausea & Uncoded 11/10/19 16:57 Vomiting TAPE Allergy Unknown Itching Uncoded 11/10/19 16:57 Physical Exam Vitals: Vital Signs Temp Pulse Resp BP Pulse Ox 11/14/19 19:44 16 11/14/19 19:06 99.0 F 80 170/81 95 11/14/19 15:28 73 16 11/14/19 14:34 98.9 F 73 16 132/84 95 11/14/19 07:39 78 16 11/14/19 06:57 98.2 F 77 16 97/65 93 L 11/14/19 01:32 98.3 F 78 150/75 95 11/13/19 23:48 75 16 Intake and Output 11/14/19 11/14/19 11/14/19 06:59 14:59 22:59 Intake Total 600 500 590 Output Total 1025 700 700 Balance -425 -200 -110 Intake: Intake, IV Titration 600 50 50 Amount Sodium Chloride 0.9% 1, 600 000 ml @ 75 mls/hr IV . [id number] [facility] Rx#:[id number] ceFAZolin 1,000 mg In 50 Sodium Chloride 0.9% 50 ml @ 100 mls/hr IVPB Q8HR [facility] Rx#:[id number] ceFAZolin 2,000 mg In 50 Sodium Chloride 0.9% 50 ml @ 100 mls/hr IVPB Q8HR [facility] Rx#:[id number] Oral 450 540 Output: Urine 1025 700 700 Other: Voiding Method Urinal Urinal Urinal # Voids 2 3 1 # Bowel Movements 1 GENERAL DESCRIPTION: Middle-aged male lying in bed, no distress. No tachypnea or accessory muscle of respiration use. HEENT: Shows Pallor , no scleral icterus. Oral mucous membrane is dry. No pharyngeal erythema or thrush NECK: Trachea central, no thyromegaly. LUNGS: Unlabored breathing. Clear to auscultation anteriorly. No wheeze or crackle. HEART: S1, S2, regular rate and rhythm. No loud murmur ABDOMEN: Soft, no tenderness , guarding or rigidity, no organomegaly EXTREMITIES: Patient did have extensive bilateral feet athlete's foot with evidence of right leg swelling and redness and warmth to touch SKIN: No rash, no masses palpable. NEUROLOGICAL: The patient is awake, alert, oriented x3, mood and affect normal. Results CBC & Chem 7: 11/12/19 07:05 11/12/19 07:05 Labs: Microbiology - Last 24 Hours (Table) 11/10/19 14:35 Blood Culture - Preliminary Blood No Growth after 96 hours Assessment and Plan Assessment: 1- patient presented to hospital with sepsis in this patient who did have a fever and elevated white count source is right dorsum cellulitis with diffuse swelling and redness and extensive athlete's foot likely streptococcal cellulitis 2-bilateral athlete's foot likely responsible for these recurrent episodes of cellulitis (1) Sepsis Current Visit: Yes Status: Acute Code(s): A41.9 - SEPSIS, UNSPECIFIED ORGANISM SNOMED Code(s): 31775661 (2) Athletes foot Current Visit: Yes Status: Acute Code(s): B35.3 - TINEA PEDIS SNOMED Code(s): 4634345 (3) Cellulitis of right leg Current Visit: Yes Status: Acute Code(s): L03.115 - CELLULITIS OF RIGHT LOWER LIMB SNOMED Code(s): 377243849 Plan: 1- increase the dose of cefazolin to 2 g every 8 hours 2- nystatin cream twice a day to his bilateral athlete's foot area 3-marked the area there and his right leg 4- Armando wrap to the right leg from just above the toe to below the knee We will follow on clinical condition and cultures to further adjust medication if needed Thank you for this consultation will follow this patient with you Time with Patient: Greater than 30
[2019-11-15] MEDS: NYSTATIN 100,000UNIT/GM CREAM 30 GM TUBE TOPICAL SCH ×2 (08:56→20:24)
[2019-11-15 14:01] VITALS: BMI 36.2
--- NOTE | 2019-11-15 23:33 | PN ---
PROGRESS NOTE DATE OF SERVICE: 11/15/2019 REASON FOR FOLLOWUP: Right lower extremity cellulitis with athlete's foot. INTERVAL HISTORY: Patient is currently afebrile. The patient has been breathing comfortably. Still complaining of some discomfort to the right leg. No chest pain, shortness of breath or cough. No abdominal pain or diarrhea. PHYSICAL EXAMINATION: Blood pressure 114/65, pulse of 80, temperature 98.1. He is 94% on room air. General description is a middle-aged male lying in bed in no distress. RESPIRATORY SYSTEM: Unlabored breathing. Clear to auscultation anteriorly. HEART: S1, S2. Regular rate and rhythm. ABDOMEN: Soft. No tenderness. Legs are currently wrapped up. No obvious drainage on the dressing. DIAGNOSTIC IMPRESSION AND PLAN: Patient with bilateral lower extremity cellulitis in this patient who did have diffuse swelling and redness, likely streptococcal disease with extensive athlete's foot. Patient at this time is on cefazolin 2 grams q.8 hours; to continue for another 24 hours. Local care to bilateral feet to continue with nystatin cream and monitor his clinical course closely. MMODL / IJN: [id number] /
[2019-11-16] MEDS: HEPARIN SODIUM,PORCINE 5,000 UNIT/ML 1 ML VIAL SQ SCH ×4 (00:13→23:58)
[2019-11-16] MEDS: NYSTATIN 100,000UNIT/GM CREAM 30 GM TUBE TOPICAL SCH ×2 (08:39→21:23)
[2019-11-16 11:12] LABS: Basophils % (A) 0 %; Eosinophils # (A) 0.5 k/uL (0-0.7); Eosinophils % (A) 5 %; HCT 39.8 % (39.0-53.0); Lymphocytes # (A) 1.6 k/uL (1.0-4.8); Lymphocytes % (A) 17 %; MCH 29.6 pg (25.0-35.0); MCHC 32.7 g/dL (31.0-37.0); MCV 90.4 fL (80.0-100.0); Mean Platelet Volume 7.5; Monocytes # (A) 0.5 k/uL (0-1.0); Monocytes % (A) 6 %; Neutrophils # (A) 6.7 k/uL (1.3-7.7); Neutrophils % (A) 70 %; Platelet Count 248 k/uL (150-450); RBC 4.41 m/uL (4.30-5.90); RDW 12.9 % (11.5-15.5); WBC 9.5 k/uL (3.8-10.6)
[2019-11-16 11:20] LABS: Calcium 8.7 mg/dL (8.4-10.2); Potassium 4.5 mmol/L (3.5-5.1)
--- NOTE | 2019-11-16 23:25 | PN ---
PROGRESS NOTE DATE OF SERVICE: 11/16/2019. REASON FOR FOLLOWUP: 1. Right lower extremity cellulitis. 2. Athlete's foot bilateral. INTERVAL HISTORY: Patient is currently afebrile, has been breathing comfortably. Still complaining of pain and discomfort especially when he walks on the right leg. He denies having any chest pain, shortness of breath or cough. No nausea. No vomiting. No abdominal pain or diarrhea. PHYSICAL EXAMINATION: Blood pressure is 117/74 with a pulse of 78, temperature 98.2. He is 96% on room air. General description is a middle-aged male lying in bed in no distress. Respiratory system: Unlabored breathing. Clear to auscultation anteriorly. Heart S1, S2. Regular rate and rhythm. Abdomen soft, no tenderness. Right leg swelling and redness has improved. LABS: White count is 9.5, creatinine 1.09. Blood culture has been negative. DIAGNOSTIC IMPRESSION AND PLAN: 1. Patient with acute right lower extremity cellulitis in this patient who did have a significant Athlete's foot. Patient clinically responding to cefazolin to continue. White count normalized. Continue with Armando wrap to the leg to keep the swelling down. 2. The patient with bilateral athlete's foot. Continue with nystatin cream twice a day and reevaluate the patient tomorrow. MMODL / IJN: [id number] /
--- NOTE | 2019-11-17 00:03 | P.PN ---
Subjective Progress Note Date: 11/14/19 Principal diagnosis: Right lower extremity cellulitis Patient is a 59-year-old male with a known history of cellulitis of the right leg x2, history of multiple leg fractures and asthma came to ER with complaints of right leg pain. Patient states that he has been having increased redness and swelling of the right lower extremity since morning. Initially started near the ankle area and then spread proximally. Patient was also febrile with T-max was 1011.7 on admission. Patient did have prior cellulitis in the past. Denied any complaints of chest pain or shortness of breath. Patient states that he did have history of DVT along with cellulitis. No nausea vomiting or abdominal pain or diarrhea. No recent illnesses or sick contacts. No complaints of pleuritic chest pain. Patient does have chronic bilateral lower extremity edema which seems to increase with overnight leg elevation. Denied any complaints of congestive heart failure. Denied any history of heart disease. Lower extremity duplex scan is negative for DVT. Laboratory data showed WBC 17.8, hemoglobin 15.5, lymphocytes 0.4 and neutrophils 16.5 absolute Liver enzymes are not elevated. Electrolytes within normal limits. 11/11/2019 Patient is currently lying in the bed comfortably. Right lower extremity redness did improve compared to yesterday. Still having leg swelling. No drainage was noted. Patient is also complaining of pain in the back of the calf region. Duplex scan was negative otherwise. Patient does have slight compression this morning with T-max of 100.5 Currently saturating well on room air. Laboratory data reviewed. Patient is being continued on antibiotics in the form of vancomycin. Blood cultures have been negative so far. 11/12/2019 Patient is currently lying in the bed comfortably. Right lower extremity swelling is better and the redness is better as well. Patient is currently complaining of pain and unable to bear any weight at this time. No fever no chills. Leukocytosis improved. Antibiotics will be changed to cefazolin. Blood cultures have been negative so far. 11/13/2019 Patient denied any complaints of fever or chills. No complaints of chest pain or shortness of breath. Right lower extremity swelling is improved. Redness improved as well. Able to walk to the bathroom. Currently being continued on antibiotics in the home cefazolin. Anticipate discharge in the next 24 hours with more clinical improvement. Blood cultures have been negative so far 11/14/2019 Patient still having right lower extremity redness and swelling but improving slowly. Patient was able to walk in hallway with his son yesterday. ID service was consulted. Cultures have been negative. Patient has been afebrile. No complaints of chest pain or shortness of breath. Current medications reviewed. Objective - Vital Signs Vital signs: Vital Signs Temp 98.9 F 11/14/19 14:34 Pulse 73 11/14/19 14:34 Resp 16 11/14/19 14:34 BP 132/84 11/14/19 14:34 Pulse Ox 95 11/14/19 14:34 Intake & Output 11/13/19 11/14/19 11/14/19 18:59 06:59 18:59 Intake Total 400 1200 500 Output Total 1025 700 Balance 400 175 -200 Intake: Intake, IV Titration 50 1200 50 Amount Sodium Chloride 0.9% 1, 1200 000 ml @ 75 mls/hr IV . [id number] [facility] Rx#:[id number] ceFAZolin 1,000 mg In 50 50 Sodium Chloride 0.9% 50 ml @ 100 mls/hr IVPB Q8HR [facility] Rx#:[id number] Oral 350 450 Output: Urine 1025 700 Other: Voiding Method Urinal Urinal Urinal # Voids 3 2 3 - Exam PHYSICAL EXAMINATION: Patient is lying in the bed comfortably, no acute distress, awake alert and oriented.. HEENT: Normocephalic. Neck is supple. Pupils reactive. Nostrils clear. Oral cavity is moist. Ears reveal no drainage. Neck reveals no JVD, carotid bruits, or thyromegaly. CHEST EXAMINATION: Trachea is central. Symmetrical expansion. Lung kaplan clear to auscultation and percussion. CARDIAC: Normal S1, S2 with no gallops. No murmurs ABDOMEN: Soft. Bowel sounds normal. No organomegaly. No abdominal bruits. Extremities: b/ l 2+ edema. R>L Patient does have right leg redness swelling and warm and tender to touch. No fluid collection or discharge noted. No clubbing or cyanosis Neurologically awake, alert, oriented x3 with well-coordinated movements. No focal deficits noted Skin: No rash or skin lesions. Psychiatric: Coperative. Nonsuicidal Musculoskeletal: No joint swelling or deformity. Normal range of motion. - Labs CBC & Chem 7: 11/16/19 10:47 11/16/19 10:47 Labs: Microbiology - Last 24 Hours (Table) 11/10/19 14:35 Blood Culture - Preliminary Blood No Growth after 72 hours Assessment and Plan Assessment: Right lower extremity cellulitis Sepsis secondary to cellulitis Previous history of right lower extremity cellulitis and laceration wound Asthma stable Morbid obesity with BMI 36.3 Plan: Patient was given a dose of ceftriaxone and vancomycin in the ER. We will continue with vancomycin at this time---Cefazolin Follow-up blood cultures and monitor closely. Continue with pain management and further recommendations based on the clinical course. Time with Patient: Greater than 30
--- NOTE | 2019-11-17 00:05 | P.PN ---
Subjective Progress Note Date: 11/15/19 Principal diagnosis: Right lower extremity cellulitis Patient is a 59-year-old male with a known history of cellulitis of the right leg x2, history of multiple leg fractures and asthma came to ER with complaints of right leg pain. Patient states that he has been having increased redness and swelling of the right lower extremity since morning. Initially started near the ankle area and then spread proximally. Patient was also febrile with T-max was 1011.7 on admission. Patient did have prior cellulitis in the past. Denied any complaints of chest pain or shortness of breath. Patient states that he did have history of DVT along with cellulitis. No nausea vomiting or abdominal pain or diarrhea. No recent illnesses or sick contacts. No complaints of pleuritic chest pain. Patient does have chronic bilateral lower extremity edema which seems to increase with overnight leg elevation. Denied any complaints of congestive heart failure. Denied any history of heart disease. Lower extremity duplex scan is negative for DVT. Laboratory data showed WBC 17.8, hemoglobin 15.5, lymphocytes 0.4 and neutrophils 16.5 absolute Liver enzymes are not elevated. Electrolytes within normal limits. 11/11/2019 Patient is currently lying in the bed comfortably. Right lower extremity redness did improve compared to yesterday. Still having leg swelling. No drainage was noted. Patient is also complaining of pain in the back of the calf region. Duplex scan was negative otherwise. Patient does have slight compression this morning with T-max of 100.5 Currently saturating well on room air. Laboratory data reviewed. Patient is being continued on antibiotics in the form of vancomycin. Blood cultures have been negative so far. 11/12/2019 Patient is currently lying in the bed comfortably. Right lower extremity swelling is better and the redness is better as well. Patient is currently complaining of pain and unable to bear any weight at this time. No fever no chills. Leukocytosis improved. Antibiotics will be changed to cefazolin. Blood cultures have been negative so far. 11/13/2019 Patient denied any complaints of fever or chills. No complaints of chest pain or shortness of breath. Right lower extremity swelling is improved. Redness improved as well. Able to walk to the bathroom. Currently being continued on antibiotics in the home cefazolin. Anticipate discharge in the next 24 hours with more clinical improvement. Blood cultures have been negative so far 11/14/2019 Patient still having right lower extremity redness and swelling but improving slowly. Patient was able to walk in hallway with his son yesterday. ID service was consulted. Cultures have been negative. Patient has been afebrile. No complaints of chest pain or shortness of breath. 11/15/2019 Patient is currently lying in the bed comfortably. Denied any complaints of chest pain or shortness of breath. Right leg is Armando wrapped and swelling seems to be improving. No fever no chills. Continue antibiotics in the form of cefazolin 2 g every 8 hourly as per ID recommendations. No nausea vomiting or abdominal pain. Patient was able to walk to the bathroom. But still complaining of pain. Current medications reviewed. Objective - Vital Signs Vital signs: Vital Signs Temp 98.1 F 11/15/19 19:06 Pulse 80 11/15/19 19:06 Resp 20 11/15/19 19:06 BP 114/65 11/15/19 19:06 Pulse Ox 94 L 11/15/19 19:06 Intake & Output 11/15/19 11/15/19 11/16/19 06:59 18:59 06:59 Intake Total 100 Output Total 725 2 Balance -625 -2 Weight 135.171 kg Intake: Intake, IV Titration 100 Amount ceFAZolin 2,000 mg In 100 Sodium Chloride 0.9% 50 ml @ 100 mls/hr IVPB Q8HR [facility] Rx#:[id number] Output: Urine 725 2 Other: Voiding Method Urinal Urinal # Voids 2 2 - Exam PHYSICAL EXAMINATION: Patient is lying in the bed comfortably, no acute distress, awake alert and oriented.. HEENT: Normocephalic. Neck is supple. Pupils reactive. Nostrils clear. Oral cavity is moist. Ears reveal no drainage. Neck reveals no JVD, carotid bruits, or thyromegaly. CHEST EXAMINATION: Trachea is central. Symmetrical expansion. Lung kaplan clear to auscultation and percussion. CARDIAC: Normal S1, S2 with no gallops. No murmurs ABDOMEN: Soft. Bowel sounds normal. No organomegaly. No abdominal bruits. Extremities: b/ l 2+ edema. R>L Patient does have right leg redness swelling and warm and tender to touch. No fluid collection or discharge noted. No clubbing or cyanosis Neurologically awake, alert, oriented x3 with well-coordinated movements. No focal deficits noted Skin: No rash or skin lesions. Psychiatric: Coperative. Nonsuicidal Musculoskeletal: No joint swelling or deformity. Normal range of motion. - Labs CBC & Chem 7: 11/16/19 10:47 11/16/19 10:47 Labs: Microbiology - Last 24 Hours (Table) 11/10/19 14:35 Blood Culture - Preliminary Blood No Growth after 120 hours Assessment and Plan Assessment: Right lower extremity cellulitis Sepsis secondary to cellulitis Previous history of right lower extremity cellulitis and laceration wound Asthma stable Morbid obesity with BMI 36.3 Plan: Patient was given a dose of ceftriaxone and vancomycin in the ER. We will continue with vancomycin at this time---Cefazolin Follow-up blood cultures and monitor closely. Continue with pain management and further recommendations based on the clinical course.
[2019-11-17] MEDS: HEPARIN SODIUM,PORCINE 5,000 UNIT/ML 1 ML VIAL SQ SCH ×3 (08:47→23:27)
[2019-11-17] MEDS: NYSTATIN 100,000UNIT/GM CREAM 30 GM TUBE TOPICAL SCH ×2 (08:48→20:11)
--- NOTE | 2019-11-17 16:12 | CT ---
EXAMINATION TYPE: CT lower leg RT w con DATE OF EXAM: 11/17/2019 COMPARISON: Right ankle x-ray March 20, 2014 HISTORY: Cellulitis, rule out abscess. CT DLP: 296.3 mGycm Automated exposure control for dose reduction was used. CONTRAST: Performed with IV Contrast, patient injected with 100 mL of Isovue 300. FINDINGS: CT scan of the right leg shows new fixating plate through healed fracture of the lateral malleolus. N o acute fracture or dislocation is present. Right knee joint shows mild patellofemoral compartment na rrowing. There is mild to moderate prepatellar and superficial infrapatellar edema. Muscle bulk in th e right leg appears within normal limits. There is mild/moderate diffuse subcutaneous edema along the leg greater mid to distal aspects without well-formed focal fluid collection or drainable abscess id entified. Ankle mortise symmetry is preserved. IMPRESSION: As above.
--- NOTE | 2019-11-18 00:13 | P.PN ---
Subjective Progress Note Date: 11/16/19 Principal diagnosis: Right lower extremity cellulitis Patient is a 59-year-old male with a known history of cellulitis of the right leg x2, history of multiple leg fractures and asthma came to ER with complaints of right leg pain. Patient states that he has been having increased redness and swelling of the right lower extremity since morning. Initially started near the ankle area and then spread proximally. Patient was also febrile with T-max was 1011.7 on admission. Patient did have prior cellulitis in the past. Denied any complaints of chest pain or shortness of breath. Patient states that he did have history of DVT along with cellulitis. No nausea vomiting or abdominal pain or diarrhea. No recent illnesses or sick contacts. No complaints of pleuritic chest pain. Patient does have chronic bilateral lower extremity edema which seems to increase with overnight leg elevation. Denied any complaints of congestive heart failure. Denied any history of heart disease. Lower extremity duplex scan is negative for DVT. Laboratory data showed WBC 17.8, hemoglobin 15.5, lymphocytes 0.4 and neutrophils 16.5 absolute Liver enzymes are not elevated. Electrolytes within normal limits. 11/11/2019 Patient is currently lying in the bed comfortably. Right lower extremity redness did improve compared to yesterday. Still having leg swelling. No drainage was noted. Patient is also complaining of pain in the back of the calf region. Duplex scan was negative otherwise. Patient does have slight compression this morning with T-max of 100.5 Currently saturating well on room air. Laboratory data reviewed. Patient is being continued on antibiotics in the form of vancomycin. Blood cultures have been negative so far. 11/12/2019 Patient is currently lying in the bed comfortably. Right lower extremity swelling is better and the redness is better as well. Patient is currently complaining of pain and unable to bear any weight at this time. No fever no chills. Leukocytosis improved. Antibiotics will be changed to cefazolin. Blood cultures have been negative so far. 11/13/2019 Patient denied any complaints of fever or chills. No complaints of chest pain or shortness of breath. Right lower extremity swelling is improved. Redness improved as well. Able to walk to the bathroom. Currently being continued on antibiotics in the home cefazolin. Anticipate discharge in the next 24 hours with more clinical improvement. Blood cultures have been negative so far 11/14/2019 Patient still having right lower extremity redness and swelling but improving slowly. Patient was able to walk in hallway with his son yesterday. ID service was consulted. Cultures have been negative. Patient has been afebrile. No complaints of chest pain or shortness of breath. 11/15/2019 Patient is currently lying in the bed comfortably. Denied any complaints of chest pain or shortness of breath. Right leg is Armando wrapped and swelling seems to be improving. No fever no chills. Continue antibiotics in the form of cefazolin 2 g every 8 hourly as per ID recommendations. No nausea vomiting or abdominal pain. Patient was able to walk to the bathroom. But still complaining of pain. 11/16/2019 Patient still complaining of pain with weightbearing on the leg. Swelling of the right leg is much improved and redness is still present. Currently being continued on IV antibiotics and ID is on board. Otherwise no complaints of chest pain or shortness of breath. No nausea vomiting or abdominal pain. Current medications reviewed. Objective - Vital Signs Vital signs: Vital Signs Temp 98.1 F 11/16/19 15:00 Pulse 71 11/16/19 16:00 Resp 16 11/16/19 16:00 BP 136/80 11/16/19 15:00 Pulse Ox 92 L 11/16/19 15:00 Intake & Output 11/15/19 11/16/19 11/16/19 18:59 06:59 18:59 Intake Total 675 Output Total 2 2 Balance -2 673 Weight 135.171 kg Intake: Intake, IV Titration 50 Amount ceFAZolin 2,000 mg In 50 Sodium Chloride 0.9% 50 ml @ 100 mls/hr IVPB Q8HR [facility] Rx#:[id number] Oral 625 Output: Urine 2 2 Other: Voiding Method Urinal Urinal # Voids 2 3 # Bowel Movements 1 - Exam PHYSICAL EXAMINATION: Patient is lying in the bed comfortably, no acute distress, awake alert and oriented.. HEENT: Normocephalic. Neck is supple. Pupils reactive. Nostrils clear. Oral cavity is moist. Ears reveal no drainage. Neck reveals no JVD, carotid bruits, or thyromegaly. CHEST EXAMINATION: Trachea is central. Symmetrical expansion. Lung kaplan clear to auscultation and percussion. CARDIAC: Normal S1, S2 with no gallops. No murmurs ABDOMEN: Soft. Bowel sounds normal. No organomegaly. No abdominal bruits. Extremities: b/ l 2+ edema. R>L Patient does have right leg redness swelling and warm and tender to touch. No fluid collection or discharge noted. No clubbing or cyanosis Neurologically awake, alert, oriented x3 with well-coordinated movements. No focal deficits noted Skin: No rash or skin lesions. Psychiatric: Coperative. Nonsuicidal Musculoskeletal: No joint swelling or deformity. Normal range of motion. - Labs CBC & Chem 7: 11/16/19 10:47 11/16/19 10:47 Labs: Abnormal Lab Results - Last 24 Hours (Table) 11/16/19 Range/Units 10:47 Glucose 114 H (74-99) mg/dL Microbiology - Last 24 Hours (Table) 11/10/19 14:35 Blood Culture - Final Blood No Growth after 144 hours Assessment and Plan Assessment: Right lower extremity cellulitis Sepsis secondary to cellulitis Previous history of right lower extremity cellulitis and laceration wound Asthma stable Morbid obesity with BMI 36.3 Plan: Patient was given a dose of ceftriaxone and vancomycin in the ER. We will continue with vancomycin at this time---Cefazolin Follow-up blood cultures and monitor closely. Continue with pain management and further recommendations based on the clinical course.
--- NOTE | 2019-11-18 00:17 | P.PN ---
Subjective Progress Note Date: 11/17/19 Principal diagnosis: Right lower extremity cellulitis Patient is a 59-year-old male with a known history of cellulitis of the right leg x2, history of multiple leg fractures and asthma came to ER with complaints of right leg pain. Patient states that he has been having increased redness and swelling of the right lower extremity since morning. Initially started near the ankle area and then spread proximally. Patient was also febrile with T-max was 1011.7 on admission. Patient did have prior cellulitis in the past. Denied any complaints of chest pain or shortness of breath. Patient states that he did have history of DVT along with cellulitis. No nausea vomiting or abdominal pain or diarrhea. No recent illnesses or sick contacts. No complaints of pleuritic chest pain. Patient does have chronic bilateral lower extremity edema which seems to increase with overnight leg elevation. Denied any complaints of congestive heart failure. Denied any history of heart disease. Lower extremity duplex scan is negative for DVT. Laboratory data showed WBC 17.8, hemoglobin 15.5, lymphocytes 0.4 and neutrophils 16.5 absolute Liver enzymes are not elevated. Electrolytes within normal limits. 11/11/2019 Patient is currently lying in the bed comfortably. Right lower extremity redness did improve compared to yesterday. Still having leg swelling. No drainage was noted. Patient is also complaining of pain in the back of the calf region. Duplex scan was negative otherwise. Patient does have slight compression this morning with T-max of 100.5 Currently saturating well on room air. Laboratory data reviewed. Patient is being continued on antibiotics in the form of vancomycin. Blood cultures have been negative so far. 11/12/2019 Patient is currently lying in the bed comfortably. Right lower extremity swelling is better and the redness is better as well. Patient is currently complaining of pain and unable to bear any weight at this time. No fever no chills. Leukocytosis improved. Antibiotics will be changed to cefazolin. Blood cultures have been negative so far. 11/13/2019 Patient denied any complaints of fever or chills. No complaints of chest pain or shortness of breath. Right lower extremity swelling is improved. Redness improved as well. Able to walk to the bathroom. Currently being continued on antibiotics in the home cefazolin. Anticipate discharge in the next 24 hours with more clinical improvement. Blood cultures have been negative so far 11/14/2019 Patient still having right lower extremity redness and swelling but improving slowly. Patient was able to walk in hallway with his son yesterday. ID service was consulted. Cultures have been negative. Patient has been afebrile. No complaints of chest pain or shortness of breath. 11/15/2019 Patient is currently lying in the bed comfortably. Denied any complaints of chest pain or shortness of breath. Right leg is Armando wrapped and swelling seems to be improving. No fever no chills. Continue antibiotics in the form of cefazolin 2 g every 8 hourly as per ID recommendations. No nausea vomiting or abdominal pain. Patient was able to walk to the bathroom. But still complaining of pain. 11/16/2019 Patient still complaining of pain with weightbearing on the leg. Swelling of the right leg is much improved and redness is still present. Currently being continued on IV antibiotics and ID is on board. Otherwise no complaints of chest pain or shortness of breath. No nausea vomiting or abdominal pain. 11/17/2019 Patient is currently lying in the bed comfortably. Right lower extremity redness is still present and patient is complaining of pain with weightbearing. CT of the right lower extremity was ordered. ID is following. Otherwise patient has been afebrile. Leukocytosis resolved. No complaints of chest pain or shortness breath. No other acute overnight issues. Current medications reviewed. Objective - Vital Signs Vital signs: Vital Signs Temp 98.3 F 11/17/19 19:14 Pulse 71 11/17/19 19:14 Resp 18 11/17/19 19:14 BP 137/82 11/17/19 19:14 Pulse Ox 94 L 11/17/19 19:14 Intake & Output 11/17/19 11/17/19 11/18/19 06:59 18:59 06:59 Intake Total 570 Output Total 300 600 400 Balance -300 -30 -400 Intake: Intake, IV Titration 50 Amount ceFAZolin 2,000 mg In 50 Sodium Chloride 0.9% 50 ml @ 100 mls/hr IVPB Q8HR [facility] Rx#:[id number] Oral 520 Output: Urine 300 600 400 Other: Voiding Method Urinal Urinal Urinal # Voids 1 3 # Bowel Movements 1 - Exam PHYSICAL EXAMINATION: Patient is lying in the bed comfortably, no acute distress, awake alert and oriented.. HEENT: Normocephalic. Neck is supple. Pupils reactive. Nostrils clear. Oral cavity is moist. Ears reveal no drainage. Neck reveals no JVD, carotid bruits, or thyromegaly. CHEST EXAMINATION: Trachea is central. Symmetrical expansion. Lung kaplan clear to auscultation and percussion. CARDIAC: Normal S1, S2 with no gallops. No murmurs ABDOMEN: Soft. Bowel sounds normal. No organomegaly. No abdominal bruits. Extremities: b/ l 2+ edema. R>L Patient does have right leg redness And tenderness. Swelling improved.. No fluid collection or discharge noted. No clubbing or cyanosis Neurologically awake, alert, oriented x3 with well-coordinated movements. No focal deficits noted Skin: No rash or skin lesions. Psychiatric: Coperative. Nonsuicidal Musculoskeletal: No joint swelling or deformity. Normal range of motion. - Labs CBC & Chem 7: 11/16/19 10:47 11/16/19 10:47 Assessment and Plan Assessment: Right lower extremity cellulitis Sepsis secondary to cellulitis Previous history of right lower extremity cellulitis and laceration wound Bilateral lower extremity venous stasis changes Athlete's foot Asthma stable Morbid obesity with BMI 36.3 Plan: Patient was given a dose of ceftriaxone and vancomycin in the ER. We will continue with vancomycin at this time---Cefazolin2 g every 8 hourly. ID is on board. Blood cultures have been negative. Follow-up lower extremity CT report.. Continue with pain management and further recommendations based on the clinical course. Time with Patient: Greater than 30
--- NOTE | 2019-11-18 06:49 | PN ---
PROGRESS NOTE DATE OF SERVICE: 11/17/2019 REASON FOR FOLLOWUP: 1. Right lower extremity cellulitis. 2. Bilateral athletes foot. INTERVAL HISTORY: Patient is currently afebrile, has been breathing comfortably, still complaining of pain to the right posterior leg area especially when he walks on it. Denies having any chest pain or shortness of breath or cough. No abdominal pain. No diarrhea. PHYSICAL EXAMINATION: Blood pressure 137/82 with a pulse of 71, temperature 98.3. He is 94% on room air. General description is a middle-aged male lying in bed in no distress. RESPIRATORY SYSTEM: Unlabored breathing, clear to auscultation anteriorly. HEART: S1, S2. Regular rate and rhythm. ABDOMEN: Soft, no tenderness. Right leg did have swelling, though redness has improved. Mildly warm to touch and did have extensive bilateral athlete's foot. LABS: Hemoglobin is 13, white count 9.5. He did have a CT of the leg for his persistent pain symptom, which did not show any abscess. DIAGNOSTIC IMPRESSION AND PLAN: 1. Patient with extensive right lower extremity cellulitis. This seems to be clinically responding to cefazolin to continue for another 24 hours as white count has normalized. CT did not show any abscess, finishing therapy with oral antibiotics. 2. Bilateral athlete's foot, to continue with nystatin cream. Questions and concerns were answered. MMODL / IJN: [id number] /
[2019-11-18] MEDS: HEPARIN SODIUM,PORCINE 5,000 UNIT/ML 1 ML VIAL SQ SCH ×3 (09:03→23:18)
[2019-11-18] MEDS: NYSTATIN 100,000UNIT/GM CREAM 30 GM TUBE TOPICAL SCH ×2 (09:04→20:55)
--- NOTE | 2019-11-18 09:22 | P.PN ---
Subjective This is a pleasant 59 years old male with multiple medical problems, to records. Presents with a right leg cellulitis. Patient failed initial therapy. Infectious disease was consulted and his cefazolin was increased on 11/16-2 g 3 times a day. This morning patient states that his redness in his right leg is coming down. He has some difficulty walking but he told me he does not need help and he does not think he needs to see physical therapy. No other new complaints. Vitals and labs are stable, WBC was 9.5K last time checked. He is currently on cefazolin Objective - Vital Signs Vital signs: Vital Signs Temp 98.2 F 11/18/19 07:00 Pulse 63 11/18/19 07:00 Resp 18 11/18/19 07:00 BP 107/69 11/18/19 07:00 Pulse Ox 93 L 11/18/19 07:00 Intake & Output 11/17/19 11/18/19 11/18/19 18:59 06:59 18:59 Intake Total 570 436 Output Total 600 401 Balance -30 -401 436 Intake: Intake, IV Titration 50 Amount ceFAZolin 2,000 mg In 50 Sodium Chloride 0.9% 50 ml @ 100 mls/hr IVPB Q8HR [facility] Rx#:[id number] Oral 520 436 Output: Urine 600 401 Other: Voiding Method Urinal Urinal # Voids 3 2 # Bowel Movements 1 - Exam GENERAL: The patient is alert and oriented x3, not in any acute distress. Well developed, well nourished. HEENT: Pupils are round and equally reacting to light. EOMI. No scleral icterus. No conjunctival pallor. Normocephalic, atraumatic. No pharyngeal erythema. No thyromegaly. CARDIOVASCULAR: S1 and S2 present. No murmurs, rubs, or gallops. PULMONARY: Chest is clear to auscultation, no wheezing or crackles. ABDOMEN: Soft, nontender, nondistended, normoactive bowel sounds. No palpable organomegaly. MUSCULOSKELETAL: No joint swelling or deformity. -EXTREMITIES: No cyanosis, clubbing, or pedal edema. Right leg cellulitis, marked area NEUROLOGICAL: Gross neurological examination did not reveal any focal deficits. SKIN: No rashes. no petechiae. - Labs CBC & Chem 7: 11/16/19 10:47 11/16/19 10:47 Assessment and Plan Assessment: Right lower extremity cellulitis Sepsis secondary to cellulitis Previous history of right lower extremity cellulitis and laceration wound Bilateral lower extremity venous stasis changes Athlete's foot Asthma stable Morbid obesity with BMI 36.3 Plan: This is a pleasant 59 years old male with right leg similar to. Continue cefazolin, antibiotics as per ID team. Labs and medication were reviewed.. Continue same treatment. Continue with symptomatic treatment. Resume home medication. Monitor lytes and vitals. DVT and GI prophylaxis. Further recommendations of the clinical course of the patient DVT prophylaxis: Subcutaneous heparin GI Prophylaxis: Pepcid
[2019-11-18 10:50] LABS: Basophils # (A) 0.1 k/uL (0-0.2); Basophils % (A) 1 %; Eosinophils # (A) 0.6 k/uL (0-0.7); Eosinophils % (A) 7 %; HCT 42.5 % (39.0-53.0); HGB 13.5 gm/dL (13.0-17.5); Lymphocytes # (A) 1.6 k/uL (1.0-4.8); Lymphocytes % (A) 17 %; MCHC 31.9 g/dL (31.0-37.0); MCV 91.2 fL (80.0-100.0); Mean Platelet Volume 7.8; Monocytes % (A) 10 %; Neutrophils # (A) 6.4 k/uL (1.3-7.7); Neutrophils % (A) 65 %; Platelet Count 343 k/uL (150-450); RBC 4.66 m/uL (4.30-5.90); RDW 13.1 % (11.5-15.5); WBC 9.8 k/uL (3.8-10.6)
--- NOTE | 2019-11-18 19:35 | PN ---
PROGRESS NOTE DATE OF SERVICE: 11/18/2019 REASON FOR FOLLOWUP: Right lower extremity cellulitis. INTERVAL HISTORY: Patient is currently afebrile. The patient is breathing comfortably. The patient's right leg discomfort has improved. No chest pain, shortness of breath or cough. No abdominal pain or diarrhea. PHYSICAL EXAMINATION: Blood pressure 120/79 with a pulse of 74, temperature 98.2. He is 97% on room air. General description is a middle-aged male lying in bed in no distress. RESPIRATORY SYSTEM: Unlabored breathing. Clear to auscultation anteriorly. HEART: S1, S2. Regular rate and rhythm. ABDOMEN: Soft. No tenderness. LABS: Hemoglobin is 13.5, white count 9.8. Blood culture has been negative. DIAGNOSTIC IMPRESSION AND PLAN: 1. Patient with acute right lower extremity cellulitis with diffuse swelling and redness, likely streptococcal disease. Overall improvement on the IV cefazolin. CT was negative for any abscess. Patient at this time to continue cefazolin with a plan to finish therapy with oral Keflex. 2. Patient with extensive bilateral athlete's foot. Continue with nystatin cream. MMODL / IJN: [id number] /
[2019-11-18] MEDS: FAMOTIDINE 20 MG/2 ML VIAL IV SCH (20:54)
[2019-11-19 03:34] VITALS: RESP 17
[2019-11-19 07:29] VITALS: BP 118/73; PULSE 68; TEMP 98.1
[2019-11-19] MEDS: HEPARIN SODIUM,PORCINE 5,000 UNIT/ML 1 ML VIAL SQ SCH (07:31)
[2019-11-19] MEDS: NYSTATIN 100,000UNIT/GM CREAM 30 GM TUBE TOPICAL SCH (07:31)
[2019-11-19] MEDS: FAMOTIDINE 20 MG/2 ML VIAL IV SCH (07:31)
--- NOTE | 2019-11-19 13:17 | PN ---
PROGRESS NOTE DATE OF SERVICE: 11/19/2019 REASON FOR FOLLOWUP: 1. Right lower extremity cellulitis. 2. Extensive athlete's foot. INTERVAL HISTORY: Patient is currently afebrile. The patient is breathing comfortably. Patient denies having any chest pain or shortness of breath or cough. No abdominal pain. Overall pain and discomfort to the right leg has improved. EXAMINATION: Vital signs stable. T-max of 98. General description is a middle-aged male lying in bed in no distress. Respiratory system: Unlabored breathing. Clear to auscultation anteriorly. Heart S1, S2. Regular rate and rhythm. ABDOMEN: Soft, no tenderness. LABS: No new labs have been obtained today. DIAGNOSTIC IMPRESSION AND PLAN: 1. Patient with acute right lower extremity cellulitis in this patient who did have overall extensive bilateral Athlete's feet. The patient seemed to have shown overall clinical improvement. Finish therapy with oral Keflex 500 mg p.o. q.6 hours for 10 days. 2. Athlete's foot, continue nystatin cream twice a day for another 10 days. Prescription has been sent to the pharmacy. MMJUANJOSEL / BARNEYN: [id number] /
--- NOTE | 2019-11-19 13:21 | P.DS ---
Providers Date of admission: 11/10/19 16:19 Attending physician: Consuelo Hussein Consults: 11/14/19 12:21 Consult Physician Routine Consulting Provider: Jorge Guaman Consult Reason/Comments: R leg cellulitis Do you want consulting provider notified?: Yes Primary care physician: Cassius Galindo [facility] Course: Diagnoses: Right lower extremity cellulitis Sepsis secondary to cellulitis Previous history of right lower extremity cellulitis and laceration wound Bilateral lower extremity venous stasis changes Athlete's foot Asthma stable Morbid obesity with BMI 36.3 Hospital course: This is a pleasant 59 years old male with multiple medical problems, Presents with a right leg cellulitis. Patient failed initial therapy. Infectious disease was consulted and his cefazolin was increased on 11/16 to a higher dose of 2 g, 3 times a day. Right leg cellulitis is improved significantly with less redness, swelling and tenderness. He has some difficulty walking but he told me he does not want help and he refused physical therapy evaluation. Patient was cleared for discharge by infectious disease. Patient will be discharged on short course of oral antibiotics with keflex and nystatin cream as per ID team Problems and management plan were discussed with the patient and he verbalized understanding and acceptance Patient was found stable and can be discharged home however he needs follow-up as an outpatient. Patient was instructed to follow up with PCP within one week and patient agrees Gen: patient is a AAOx3, no distress CVS: S1-S2, RRR, no murmur Lungs: B/L CTA, no wheezing Abdomen: soft, no distention, no tenderness, positive bowel sounds Extremity: no leg edema or induration, rt leg cellulitis is improving Time spent more than 35 minutes Patient Condition at Discharge: Good Plan - Discharge Summary Discharge Rx Participant: No New Discharge Prescriptions: New Cephalexin [Keflex] 500 mg PO Q6HR #40 cap Nystatin 100,000Unit/gm Cream [Mycostatin Cream] 1 applic TOPICAL BID #60 gm Acetaminophen Tab [Tylenol] 650 mg PO Q6HR PRN tab PRN Reason: Mild Pain Or Fever > 100.5 Discontinued Multivitamin/Iron/Folic Acid [Centrum Complete Multivit Tab] 1 each PO DAILY Discharge Medication List Acetaminophen Tab [Tylenol] 650 mg PO Q6HR PRN tab 11/19/19 [Rx] Cephalexin [Keflex] 500 mg PO Q6HR #40 cap 11/19/19 [Rx] Nystatin 100,000Unit/gm Cream [Mycostatin Cream] 1 applic TOPICAL BID #60 gm 11/19/19 [Rx] Follow up Appointment(s)/Referral(s): Cassius Kelly III, MD [Primary Care Provider] - 11/22/19 1:30 pm (with Jeff BERRY)
[2019-11-19] MEDS ORDERED: FAMOTIDINE 20 MG TAB PO SCH (21:00)
== END 2019-11-19 14:02 | disposition home or self-care (01) | DRG 872 ==
LOC: EC 13:45 → 4SSUR 16:19
PROVIDERS: ADMIT Internal Medicine; ATTEND Internal Medicine
DX: A41.9 Sepsis, unspecified organism (principal); L03.115 Cellulitis of right lower limb; E66.01 Morbid (severe) obesity due to excess calories; B35.3 Tinea pedis; J45.909 Unspecified asthma, uncomplicated; Z20.828 Contact with and (suspected) exposure to other viral communicable diseases; I87.8 Other specified disorders of veins; R26.2 Difficulty in walking, not elsewhere classified; Z68.36 Body mass index [BMI] 36.0-36.9, adult; Z79.899 Other long term (current) drug therapy; Z71.3 Dietary counseling and surveillance; Z86.718 Personal history of other venous thrombosis and embolism; Z87.19 Personal history of other diseases of the digestive system; Z98.890 Other specified postprocedural states; Z90.89 Acquired absence of other organs; Z88.1 Allergy status to other antibiotic agents; Z91.048 Other nonmedicinal substance allergy status; Z82.0 Family history of epilepsy and other diseases of the nervous system
CPT/HCPCS: 36415; 80048; 80053; 80202; 83605; 85025; 87040; 96361; 96374; 99284

== ENCOUNTER 2020-08-31 14:17 | Emergency (ER) | payer OTHER, MEDICAID ==
--- NOTE | 2020-08-31 14:36 | ED ---
General Adult HPI - General Source: patient, RN notes reviewed Mode of arrival: ambulatory Limitations: no limitations <Paresh Yoo - Last Filed: 08/31/20 14:33> <Nixon More - Last Filed: 08/31/20 20:17> - General Stated complaint: Fever Time Seen by Provider: 08/31/20 14:30 - History of Present Illness Initial comments: This a 60-year-old male presents emergency Department with chief complaint of fever cough congestion bodyaches nasal congestion. Patient states she's been taking antibiotics for his legs in which his legs are improving for cellulitis but states that he feels that he may have Covid. Patient denies any significant shortness of breath. He states he is achy all over. Patient denies any other significant complaints. (Paresh Yoo) - Related Data Previous Rx's Medication Instructions Recorded Acetaminophen Tab [Tylenol] 650 mg PO Q6HR PRN tab 11/19/19 Cephalexin [Keflex] 500 mg PO Q6HR #40 cap 11/19/19 Nystatin 100,000Unit/gm Cream 1 applic TOPICAL BID #60 gm 11/19/19 [Mycostatin Cream] Allergies Allergy/AdvReac Type Severity Reaction Status Date / Time ANTIBIOTIC Allergy Unknown Nausea & Uncoded 08/31/20 14:32 Vomiting TAPE Allergy Unknown Itching Uncoded 08/31/20 14:32 Review of Systems ROS Other: All systems not noted in ROS Statement are negative. <Paresh Yoo - Last Filed: 08/31/20 14:33> ROS Other: All systems not noted in ROS Statement are negative. <Nixon More - Last Filed: 08/31/20 20:17> ROS Statement: Those systems with pertinent positive or pertinent negative responses have been documented in the HPI. Past Medical History Past Medical History: Asthma Additional Past Medical History / Comment(s): HX BRONCHITIS., HAYFEVER, HX OF HERNIATED DISC.,HX OF CELLULITIS IN RIGHT LEG X2., BLOOD IN STOOL., STATES LEFT LEG LACERATION ON HARTMAN WITH 16 STITCHES NOW REMOVED - STATES HE HAS CELLULITIS- DRAINING AND HAS DRESSING ON & TAKING ANTIBIOTIC.,INSTRUCTED PT TO NOTIFY DR LOPEZ OFFICE, FX TIB/FIB RIGHT LEG W/LAURYN 2015 History of Any Multi-Drug Resistant Organisms: None Reported Past Surgical History: Orthopedic Surgery, Tonsillectomy Additional Past Surgical History / Comment(s): SURGERY ON RIGHT LEG FX., DEVELOPED CELLULITIS AND HAD I & D. Past Anesthesia/Blood Transfusion Reactions: No Reported Reaction Past Psychological History: No Psychological Hx Reported Past Alcohol Use History: Rare Past Drug Use History: None Reported Additional Drug Use History / Comment(s): DID STRE[address] DRUG A TEEN. - Past Family History Father Additional Family Medical History / Comment(s): PARKINSONS <Paresh Yoo - Last Filed: 08/31/20 14:33> General Exam General appearance: alert, in no apparent distress Head exam: Present: atraumatic, normocephalic, normal inspection Eye exam: Present: normal appearance, PERRL, EOMI. Absent: scleral icterus, conjunctival injection, periorbital swelling Respiratory exam: Present: normal lung sounds bilaterally. Absent: respiratory distress, wheezes, rales, rhonchi, stridor Cardiovascular Exam: Present: regular rate, normal rhythm, normal heart sounds. Absent: systolic murmur, diastolic murmur, rubs, gallop, clicks Neurological exam: Present: alert Skin exam: Present: warm, dry, intact, normal color. Absent: rash <Paresh Yoo - Last Filed: 08/31/20 14:33> General appearance: alert, in no apparent distress Head exam: Present: atraumatic, normocephalic, normal inspection ENT exam: Present: normal exam, mucous membranes moist Neck exam: Present: normal inspection, full ROM. Absent: tenderness, meningismus, lymphadenopathy, thyromegaly Respiratory exam: Absent: decreased breath sounds Cardiovascular Exam: Present: regular rate, normal rhythm, normal heart sounds. Absent: systolic murmur, diastolic murmur, rubs, gallop, clicks GI/Abdominal exam: Present: soft, normal bowel sounds. Absent: distended, tenderness, guarding, rebound, rigid Neurological exam: Present: alert, oriented X3 Psychiatric exam: Present: normal affect, normal mood Skin exam: Present: warm, dry, intact, normal color. Absent: rash, diaphoretic <Nixon More - Last Filed: 08/31/20 20:17> Course Vital Signs 08/31/20 08/31/20 08/31/20 14:33 18:10 18:32 Temperature 99.0 F 98.6 F Pulse Rate 92 Pulse Rate [ 92 Left] Respiratory 18 17 18 Rate Blood Pressure 140/88 Blood Pressure 142/88 [Left Arm] O2 Sat by Pulse 94 L 93 L Oximetry 08/31/20 08/31/20 18:50 19:13 Temperature 99.1 F Pulse Rate 80 Pulse Rate [ Left] Respiratory 18 18 Rate Blood Pressure 144/94 Blood Pressure [Left Arm] O2 Sat by Pulse 96 Oximetry Medical Decision Making <Nixon More - Last Filed: 08/31/20 20:17> - Medical Decision Making Patient in no acute respiratory distress, saturation of oxygen 96% on room air , heart rate 80 , respiratory rate of 18, blood pressure 144/94. Patient received monoclonal antibodies infusion will be discharged home to follow up with primary care doctor with instructions to return if increasing shortness of breath chest pain (Nixon More) - Lab Data Lab Results 08/31/20 Range/Units 14:36 Coronavirus (PCR) Detected A (Not Detectd) Disposition <Paresh Yoo - Last Filed: 08/31/20 14:33> Is patient prescribed a controlled substance at d/c from ED?: No Time of Disposition: 20:17 <Nixon More - Last Filed: 08/31/20 20:17> Clinical Impression: COVID-19 Disposition: HOME SELF-CARE Condition: Good Instructions (If sedation given, give patient instructions): Coronavirus Disease 2019 (COVID-19) Additional Instructions: Return to the emergency room with worsening shortness of breath, chest pain, or inability to keep fluids down. Referrals: Cassius Kelly III, MD [Primary Care Provider] - 1-2 days
--- NOTE | 2020-08-31 15:13 | XR ---
EXAMINATION TYPE: XR chest 2V DATE OF EXAM: 08/31/2020 COMPARISON: 04/15/2017 HISTORY: Shortness of breath TECHNIQUE: Frontal and lateral views of the chest are obtained. FINDINGS: Scattered senescent parenchymal changes noted. Patchy perihilar and basilar infiltrates are felt to be compatible with pneumonia. Correlate clinical ly. Heart size is stable. Mediastinal structures are stable and grossly unremarkable. No evidence for hilar prominence. Degenerative changes dorsal spine. IMPRESSION: 1. Patchy perihilar and basilar infiltrates are felt to be compatible with pneumonia. Correlate clini alberto.
[2020-08-31] MEDS ORDERED: BAMLANIVIMAB (EUA) 700 MG, ETESEVIMAB (EUA) 1,400 MG in SODIUM CHLORIDE 0.9% 50 ML IVPB ONE (18:30)
[2020-08-31] MEDS ORDERED: SODIUM CHLORIDE 0.9% 50 ML IVPB ONE (19:00)
[2020-08-31 20:30] VITALS: BP 149/80; PULSE 82; RESP 17; TEMP 99.8
== END 2020-08-31 20:31 | disposition home or self-care (01) ==
LOC: EC 14:17
DX: U07.1 COVID-19 (principal); J45.909 Unspecified asthma, uncomplicated
CPT/HCPCS: 87635; 71046; 99283; 96365; Q0245

== ENCOUNTER → 2022-03-22 | Outpatient (CLI) | payer OTHER ==
--- NOTE | 2022-03-23 07:47 | CONS ---
CONSULTATION REASON FOR CONSULTATION: Sleep apnea. HISTORY OF PRESENT ILLNESS: This is a 61-year-old male patient referred to me for sleep apnea evaluation. 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 The patient usually goes to [facility] in [place]. Based on his history of snoring and his weight, he was advised to come in for sleep apnea evaluation. The patient denies falling asleep while driving. Never involved in a motor vehicle accident. He drives many hours and he drives long distances of 500 to 600 miles. He goes to bed around 10 p.m., wakes up 5:30 a.m. in the morning. He snores. Nevertheless, he does not have any witnessed apneas. No episodes of waking up, choking, or gasping for air. No dry mouth. No grinding of the teeth. No palpitation. No heartburn. No shortness of breath. His body mass index is 43.5. No personal or family history of sleep apnea. Hoschton Score is at 9. No naps during the day. His weight is up by around 50 pounds over the past 1 year. PAST MEDICAL HISTORY: BPH, hyperlipidemia, obesity. PAST SURGICAL HISTORY: Includes tonsillectomy, surgery for a broken leg including ORIF. SOCIAL HISTORY: The patient is a nonsmoker. No history of alcohol. No history of IV drugs. MEDICATIONS: Includes, 1. Finasteride 5 mg p.o. daily. 2. Lipitor 40 mg p.o. daily. OCCUPATIONAL HISTORY: He is a lift truck mechanic. FAMILY HISTORY: Negative for obstructive sleep apnea. Positive for high blood pressure, heart problems in the father in addition to stroke in the father. REVIEW OF SYSTEMS: A 14-point review of system was done. Positive findings are mentioned in history of present illness. He has no insomnia. No choking or gasping for air. No nocturia. He denies having any problems with memory and concentration, anxiety, or claustrophobia, or sexual dysfunction. No issues with attention. No issues with driving his car. His review of systems is positive for weight gain. No sleep paralysis. No hallucinations. No cataplexy. PHYSICAL EXAMINATION: VITAL SIGNS: BP is 150/92, pulse 61, respirations 18, temperature 96.6, and saturation is 96% on room air. Neck size 16.5 inches. Hoschton score is at 9. Body mass index of 43.5. Weight is 364. GENERAL APPEARANCE: Obese, calm, comfortable. HEENT: Head atraumatic normocephalic. NECK: Supple. No JVD. No goiter or neck masses. Mallampati Class 1. LUNGS: Clear. HEART: Sounds are regular rate and rhythm. Normal S1, S2. No S3, S4. No murmurs. ABDOMEN: Obese, soft, nontender. Organs cannot be accurately palpated. EXTREMITIES: No edema. No cyanosis or clubbing. IMPRESSION: 1. Question of obstructive sleep apnea under investigation. The patient is a lift truck mechanic and this is going to be required based on DOT certification evaluation. 2. Obesity with a body mass index of 43.5. 3. Loud snoring. 4. Hyperlipidemia. 5. Benign prostatic hypertrophy. PLAN: 1. Maintain regular sleep schedule. 2. Encourage weight loss. 3. Maintain adequate sleep hygiene measures. 4. Proceed with a screening polysomnogram to investigate the patient for obstructive sleep apnea. Despite his obesity, and elevated body mass index, my overall clinical suspicion is low for any significant obstructive sleep apnea. We will follow. MMODL / IJN: [id number] /
== END ==
LOC: SLEEP 14:18
PROVIDERS: ATTEND Internal Medicine Critical Care Medicine
DX: G47.33 Obstructive sleep apnea (adult) (pediatric) (principal); E78.5 Hyperlipidemia, unspecified; N40.1 Benign prostatic hyperplasia with lower urinary tract symptoms
CPT/HCPCS: 99211

== ENCOUNTER → 2024-03-28 | Outpatient (CLI) | payer SELFPAY ==
--- NOTE | 2024-03-28 15:20 | XR ---
EXAMINATION TYPE: XR abdomen 2V DATE OF EXAM: 03/28/2024 2:15 PM COMPARISON: None CLINICAL INDICATION: Male, 63 years old with history of [id number] ABD MASS/LUMP,ABD PAIN; [facility] TECHNIQUE: Two views of the abdomen were obtained. FINDINGS: No masses definitively visualized and lower abdomen. The bowel gas pattern is nonspecific w ithout dilated loops of small or large bowel. There is no evidence for organomegaly or pneumoperitone um. The osseous structures are intact. No abnormal calcifications are present. Fecal material and g as are demonstrated throughout the colon and rectum. IMPRESSION: 1. No masses definitively visualized. 2. Nonspecific bowel gas pattern without radiographic evidence for acute process. [facility], , 03/28/2024 3:17 PM
== END | disposition home or self-care (01) ==
LOC: RADXRYALE 13:56
PROVIDERS: ATTEND Physician Assistant
DX: R19.05 Periumbilic swelling, mass or lump (principal); R10.9 Unspecified abdominal pain
CPT/HCPCS: 74019